=== PATIENT | female | born 1945 | race Caucasian/White ===

== ENCOUNTER 2018-01-02 14:26 | Emergency (ER) | payer MEDICARE, OTHER ==
--- NOTE | 2018-01-02 14:53 | ER Document Report ---
ED Medical Screen (RME) - General Chief Complaint: Abdominal Pain Stated Complaint: ABDOMINAL PAIN Time Seen by Provider: 01/02/18 14:42 Notes: 72 years old female presents today with diffuse abdominal pain for the last few days to weeks. Associated with on and off nausea no vomiting. Denies any diarrhea or constipation. Denies any fever chills or other constitutional symptoms. Denies any dysuria frequency urgency. TRAVEL OUTSIDE OF THE [place] IN LAST 30 DAYS: No - Related Data Allergies/Adverse Reactions: Penicillins Allergy (Severe, Verified 02/07/11 10:07) Sulfa (Sulfonamide Antibiotics) Allergy (Severe, Verified 02/07/11 10:07) Past Medical History - Social History Frequency of alcohol use: None Drug Abuse: None - Past Medical History Cardiac Medical History: Reports: Hx Hypertension Denies: Hx Heart Attack Pulmonary Medical History: Denies: Hx Asthma Neurological Medical History: Denies: Hx Cerebrovascular Accident, Hx Seizures Endocrine Medical History: Reports: Hx Diabetes Mellitus Type 2 Renal/ Medical History: Denies: Hx Peritoneal Dialysis GI Medical History: Denies: Hx Hepatitis, Hx Hiatal Hernia, Hx Ulcer Infectious Medical History: Denies: Hx Hepatitis Past Surgical History: Reports: Hx Cholecystectomy, Hx Hysterectomy. Denies: Hx Mastectomy, Hx Open Heart Surgery, Hx Pacemaker Physical Exam - Vital signs Vitals: Temp Pulse Resp BP Pulse Ox 98.6 F 70 16 137/64 H 93 01/02/18 14:36 01/02/18 14:36 01/02/18 14:36 01/02/18 14:36 01/02/18 14:36 Course - Vital Signs Vital signs: Temp Pulse Resp BP Pulse Ox 98.6 F 70 16 137/64 H 93 01/02/18 14:36 01/02/18 14:36 01/02/18 14:36 01/02/18 14:36 01/02/18 14:36 Doctor's Discharge - Discharge Referrals: KAMAR MEDEIROS DO [Primary Care Provider] - Follow up as needed
[2018-01-02 15:28] LABS: APPEARANCE,URINE SLIGHTLY-CLOUDY; BILIRUBIN,URINE NEGATIVE (NEGATIVE); COLOR,URINE YELLOW; GLUCOSE, URINE NEGATIVE (NEGATIVE); KETONES,URINE NEGATIVE (NEGATIVE); LEUKOCYTE ESTERASE,URINE LARGE (NEGATIVE); NITRITE,URINE NEGATIVE (NEGATIVE); PROTEIN,URINE NEGATIVE (NEGATIVE); URINE SPECIFIC GRAVITY 1.023; UROBILINOGEN,URINE NEGATIVE mg/dL (<2.0)
[2018-01-02 15:31] LABS: ABSOLUTE BASOPHILS # (AUTO) 0.1 10^3/uL (0.0-0.2); ABSOLUTE EOSINOPHILS # (AUTO) 0.3 10^3/uL (0.0-0.6); ABSOLUTE LYMPHOCYTES (AUTO) 3.4 10^3/uL (0.5-4.7); ABSOLUTE MONOCYTES (AUTO) 1.3 10^3/uL (0.1-1.4); BASOPHILS % (AUTO) 0.6 % (0-2); EOSINOPHILS % (AUTO) 2.7 % (0-6); HEMATOCRIT 47.8 % (36.0-47.0); HEMOGLOBIN 16.2 g/dL (12.0-15.5); LYMPHOCYTES % (AUTO) 34.1 % (13-45); MEAN CORPUSCULAR HEMOGLOBIN 31.7 pg (27.0-33.4); MEAN CORPUSCULAR HGB CONC 33.8 g/dL (32.0-36.0); MEAN CORPUSCULAR VOLUME 94 fl (80-97); PLATELET COUNT 329 10^3/uL (150-450); RED BLOOD COUNT 5.11 10^6/uL (3.72-5.28); RED CELL DISTRIBUTION WIDTH 13.9 % (11.5-14.0); SEGMENTED NEUTROPHILS % (AUTO) 49.6 % (42-78); TOTAL CELLS COUNTED % (AUTO) 100 %
--- NOTE | 2018-01-02 15:41 | RADIOLOGY REPORT (SQ) ---
EXAM DESCRIPTION: ACUTE ABDOMEN SERIES COMPLETED DATE/TIME: 01/02/2018 3:31 pm REASON FOR STUDY: Abdominal pain COMPARISON: 12/16/2009 NUMBER OF VIEWS: Three views. TECHNIQUE: Frontal chest, supine abdomen and upright/decubitus abdomen radiographic images acquired. LIMITATIONS: None. FINDINGS: CHEST: Lungs clear of infiltrates. FREE AIR: None. No abnormal gas collections. BOWEL GAS PATTERN: Nonobstructive pattern. No dilated loops or air fluid levels. CALCIFICATIONS: No suspicious calcifications. HARDWARE: There are clips in the right upper quadrant consistent with prior cholecystectomy. SOFT TISSUES: No gross mass or suggestion of organomegaly. BONES: There is lumbar scoliosis with concavity toward the left. OTHER: No other significant finding. IMPRESSION: NO RADIOGRAPHIC EVIDENCE FOR ACUTE ABDOMINAL DISEASE. TECHNICAL DOCUMENTATION: JOB ID: [id number] [employer]- All Rights Reserved Reading location - IP/workstation name: [email or web address]
--- NOTE | 2018-01-02 15:41 | ER Document Report ---
ED General - General Chief Complaint: Abdominal Pain Stated Complaint: ABDOMINAL PAIN Time Seen by Provider: 01/02/18 14:42 TRAVEL OUTSIDE OF THE [place] IN LAST 30 DAYS: No - HPI Notes: Patient is a 72-year-old female with a history of type 2 diabetes, GERD, and hypertension who presents to the ED complaining of epigastric abdominal burning and right upper quadrant pain consistently over the last month that is improved with p.o. intake. Patient states that she does take Zantac twice a day. She does not ring over the last time she had an EGD performed. Patient does report a surgical history of a cholecystectomy as well as a total hysterectomy. Patient states that her pains do not radiate. She is still tolerating p.o. without any difficulties. She is urinating normally having normal bowel movements although she felt constipated this morning. Denies any headache, fever, URI, sore throat, chest pain, palpitations, syncope, cough, shortness of breath, wheeze, dyspnea, nausea/vomiting/diarrhea, urinary retention, dysuria, hematuria, back pain, loss of control of bowel or bladder, numbness/tingling, saddle anesthesia, muscle paralysis/weakness, or rash. - Related Data Allergies/Adverse Reactions: Penicillins Allergy (Severe, Verified 01/02/18 15:29) Sulfa (Sulfonamide Antibiotics) Allergy (Severe, Verified 01/02/18 15:29) Past Medical History - Social History Smoking Status: Current Every Day Smoker Frequency of alcohol use: None Drug Abuse: None Family History: Reviewed & Not Pertinent Patient has suicidal ideation: No Patient has homicidal ideation: No - Past Medical History Cardiac Medical History: Reports: Hx Hypertension Denies: Hx Heart Attack Pulmonary Medical History: Denies: Hx Asthma Neurological Medical History: Denies: Hx Cerebrovascular Accident, Hx Seizures Endocrine Medical History: Reports: Hx Diabetes Mellitus Type 2 Renal/ Medical History: Denies: Hx Peritoneal Dialysis GI Medical History: Denies: Hx Hepatitis, Hx Hiatal Hernia, Hx Ulcer Infectious Medical History: Denies: Hx Hepatitis Past Surgical History: Reports: Hx Cholecystectomy, Hx Hysterectomy. Denies: Hx Mastectomy, Hx Open Heart Surgery, Hx Pacemaker Review of Systems - Review of Systems -: Yes All other systems reviewed and negative Physical Exam - Vital signs Vitals: Temp Pulse Resp BP Pulse Ox 98.6 F 70 16 137/64 H 93 01/02/18 14:36 01/02/18 14:36 01/02/18 14:36 01/02/18 14:36 01/02/18 14:36 - Notes Notes: PHYSICAL EXAMINATION: GENERAL: Well-appearing, well-nourished and in no acute distress. A&Ox4. Answers questions appropriately. HEAD: Atraumatic, normocephalic. EYES: Pupils equal round and reactive to light, extraocular movements intact, sclera anicteric, conjunctiva are normal. ENT: Nares patent and without discharge. oropharynx clear without exudates. No tonsilar hypertrophy or erythema. Moist mucous membranes. NECK: Normal range of motion, supple without lymphadenopathy LUNGS: Breath sounds clear to auscultation bilaterally and equal. No wheezes rales or rhonchi. HEART: Regular rate and rhythm without murmurs, rubs, gallops. ABDOMEN: Soft, nondistended abdomen. No guarding, no rebound. No masses appreciated. Normal bowel sounds present. No CVA tenderness bilaterally. + mild tenderness to the epigastrum and RUQ, correlates with pain described. Musculoskeletal: FROM to passive/active. Strength 5+/5. Extremities: No cyanosis, clubbing, or edema b/l. Peripheral pulses 2+. Capillary refill less than 3 seconds. NEUROLOGICAL: Normal speech, normal gait. PSYCH: Normal mood, normal affect. SKIN: Warm, Dry, normal turgor, no rashes or lesions noted. Course - Re-evaluation Re-evalutation: 01/02/18 17:06 Patient is an afebrile, well-hydrated, 72-year-old female who presents to the ED with epigastric and right upper quadrant pain, suspect possible GERD versus duodenal ulcer with report of improvement in her pain with food intake. Vitals are acceptable without any significant tachycardia, tachypnea, or hypoxia. PE is otherwise unremarkable. Patient's abdomen is now soft and nontender after a GI cocktail. Patient states that she is feeling much better. Patient did have noted mild hypercalcemia on exam, but does drink milk as her primary liquid intake. CBC, CMP, lipase, urinalysis otherwise grossly unremarkable for any acute pathology. Urine culture is pending. Acute abdominal series unremarkable. Patient is nontoxic-appearing and is tolerating p.o. without difficulties. No other labs or imaging warranted at this time based on H&P. Low suspicion/risk for acute appendicitis, bowel obstruction, acute cholecystitis, acute cholangitis, perforated diverticulitis, incarcerated hernia , pancreatitis, perforated ulcer, peritonitis, sepsis, pelvic inflammatory disease, ectopic , tubo-ovarian abscess, ovarian torsion, or other systemic emergent condition at this time. Patient is aware that her condition can change from initial presentation and she needs to monitor symptoms closely and seek medical attention if any acute changes. I will send her home with a prescription for Carafate and omeprazole. Conservative measures otherwise for symptoms. Recheck with your PCM in 2-3 days. Consider consult with a retort forker. Return to the ED with any worsening/concerning symptoms otherwise as reviewed in discharge. Patient is in agreement. - Vital Signs Vital signs: Temp Pulse Resp BP Pulse Ox 98.6 F 70 16 137/64 H 93 01/02/18 14:36 01/02/18 14:36 01/02/18 14:36 01/02/18 14:36 01/02/18 14:36 - Laboratory Result Diagrams: 01/02/18 15:05 01/02/18 15:05 Laboratory results interpreted by me: 01/02/18 01/02/18 01/02/18 15:05 15:05 15:05 Hgb 16.2 H Hct 47.8 H BUN 25 H Glucose 127 H Calcium 11.4 H Ur Leukocyte Esterase LARGE H Discharge - Discharge Clinical Impression: Epigastric abdominal pain Condition: Stable Disposition: HOME, SELF-CARE Instructions: Abdominal Pain ([facility]) Additional Instructions: Maintain adequate fluid and food intake Healthy diet Decrease consumption of calcium intake until directed otherwise by her family doctor tylenol if needed Medicines as reviewed. You may stop your Zantac and try omeprazole once daily at this time. Monitor for any worsening symptoms Make sure you are staying hydrated enough to urinate and have normal BM's Recheck with your PCM in 2-3 days Consider consult with Gastroenterology for ongoing/worsening symptoms Return to the ED with any worsening symptoms and/or development of fever, headache, chest pain, palpitations, syncope, shortness of breath, trouble breathing, abdominal pain, n/v/d, blood in stool/urine, weakness, or other worsening symptoms that are concerning to you. Prescriptions: Omeprazole 20 mg PO DAILY #30 tablet. Sucralfasissy [Carafate] 1 gm PO QID PRN #420 ml PRN Reason: Forms: Elevated Blood Pressure Referrals: DONTE LUCIANO MD [ACTIVE STAFF] - Follow up as needed BETH LEE MD [ACTIVE STAFF] - Follow up as needed
[2018-01-02 15:48] LABS: ALANINE AMINOTRANSFERASE 25 U/L (9-52); ALBUMIN 4.6 g/dL (3.5-5.0); ALKALINE PHOSPHATASE 76 U/L (38-126); ANION GAP 15 (5-19); ASPARTATE AMINO TRANSFERASE 20 U/L (14-36); BILIRUBIN,DIRECT 0.3 mg/dL (0.0-0.4); BILIRUBIN,TOTAL 0.4 mg/dL (0.2-1.3); BLOOD UREA NITROGEN 25 mg/dL (7-20); CALCIUM 11.4 mg/dL (8.4-10.2); CARBON DIOXIDE 30 mmol/L (22-30); CHLORIDE 98 mmol/L (98-107); GLUCOSE 127 mg/dL (75-110); LIPASE 84.7 U/L (23-300); POTASSIUM 4.2 mmol/L (3.6-5.0); SODIUM 143.2 mmol/L (137-145); TOTAL PROTEIN 7.8 g/dL (6.3-8.2)
[2018-01-02] MEDS ORDERED: LIDOCAINE 2% VISCOUS SOLN 20 ML UDCUP PO ONE (16:24)
[2018-01-02] MEDS ORDERED: MAG HYDROX/AL HYDROX/SIMETH SUSP 30 ML UDCUP PO ONE (16:24)
[2018-01-02] MEDS ORDERED: METOCLOPRAMIDE HCL ORAL SOLN 10 MG/10 ML UDCUP PO ONE (16:24)
[2018-01-02 18:13] VITALS: BP 141/74
== END 2018-01-02 17:30 | disposition home or self-care (01) ==
LOC: ER 14:26
DX: R10.13 Epigastric pain (principal); E11.9 Type 2 diabetes mellitus without complications; K21.9 Gastro-esophageal reflux disease without esophagitis; I10 Essential (primary) hypertension; Z90.49 Acquired absence of other specified parts of digestive tract; Z90.710 Acquired absence of both cervix and uterus
CPT/HCPCS: 99284; 36415; 87086; 83690; 85025; 87088; 80053; 81001; 87186; 74022; J3490; A9270

== ENCOUNTER 2018-12-14 18:59 | Emergency (ER) | payer MEDICARE, OTHER ==
--- NOTE | 2018-12-14 19:58 | RADIOLOGY REPORT (SQ) ---
EXAM DESCRIPTION: CHEST SINGLE VIEW COMPLETED DATE/TIME: 12/14/2018 7:41 pm REASON FOR STUDY: chest pain COMPARISON: None. EXAM PARAMETERS: NUMBER OF VIEWS: One view. TECHNIQUE: Single frontal radiographic view of the chest acquired. RADIATION DOSE: NA LIMITATIONS: None. FINDINGS: LUNGS AND PLEURA: No opacities, masses or pneumothorax. No pleural effusion. MEDIASTINUM AND HILAR STRUCTURES: No masses. Contour normal. HEART AND VASCULAR STRUCTURES: Cardiomegaly. BONES: No acute findings. HARDWARE: None in the chest. OTHER: No other significant finding. IMPRESSION: Cardiomegaly without acute abnormality of the lungs in AP projection. TECHNICAL DOCUMENTATION: JOB ID: [id number] [employer]- All Rights Reserved Reading location - IP/workstation name: [email or web address]
[2018-12-14 20:59] LABS: HEMATOCRIT 45.4 % (36.0-47.0); HEMOGLOBIN 15.1 g/dL (12.0-15.5); MEAN CORPUSCULAR HEMOGLOBIN 30.3 pg (27.0-33.4); MEAN CORPUSCULAR HGB CONC 33.3 g/dL (32.0-36.0); MEAN CORPUSCULAR VOLUME 91 fl (80-97); PLATELET COUNT 304 10^3/uL (150-450); RED BLOOD COUNT 4.99 10^6/uL (3.72-5.28); RED CELL DISTRIBUTION WIDTH 14.2 % (11.5-14.0); WHITE BLOOD COUNT 16.2 10^3/uL (4.0-10.5)
[2018-12-14 21:10] LABS: ALBUMIN 4.9 g/dL (3.5-5.0); ALKALINE PHOSPHATASE 84 U/L (38-126); ANION GAP 11 (5-19); ASPARTATE AMINO TRANSFERASE 19 U/L (14-36); BILIRUBIN,DIRECT 0.3 mg/dL (0.0-0.4); BILIRUBIN,TOTAL 0.5 mg/dL (0.2-1.3); BLOOD UREA NITROGEN 28 mg/dL (7-20); CARBON DIOXIDE 32 mmol/L (22-30); CHLORIDE 95 mmol/L (98-107); CREATINE KINASE 35 U/L (30-135); GLUCOSE 159 mg/dL (75-110); POTASSIUM 4.5 mmol/L (3.6-5.0); TOTAL PROTEIN 7.9 g/dL (6.3-8.2)
[2018-12-14 21:11] LABS: APPEARANCE,URINE CLEAR; BILIRUBIN,URINE NEGATIVE (NEGATIVE); COLOR,URINE YELLOW; GLUCOSE, URINE NEGATIVE (NEGATIVE); KETONES,URINE NEGATIVE (NEGATIVE); LEUKOCYTE ESTERASE,URINE TRACE (NEGATIVE); NITRITE,URINE NEGATIVE (NEGATIVE); PROTEIN,URINE 100 mg/dL (NEGATIVE); URINE SPECIFIC GRAVITY 1.023; UROBILINOGEN,URINE NEGATIVE mg/dL (<2.0)
[2018-12-14 21:17] LABS: CALCIUM 12.2 mg/dL (8.4-10.2)
[2018-12-14 21:29] LABS: ABSOLUTE LYMPHOCYTES# (MANUAL) 3.2 10^3/uL (0.5-4.7); BASOPHILS % (MANUAL) 0 % (0-2); EOSINOPHILS % (MANUAL) 0 % (0-6); HYPOCHROMASIA SLIGHT; LYMPHOCYTES % (MANUAL) 17 % (13-45); MONOCYTES % (MANUAL) 6 % (3-13); PLATELET COMMENT ADEQUATE; SEGMENTED NEUTROPHILS % (MAN) 74 % (42-78); TOTAL CELLS COUNTED 100
[2018-12-14] MEDS ORDERED: NORMAL SALINE 1000 ML 1,000 ML IV ONE (21:30)
--- NOTE | 2018-12-14 21:35 | ER Document Report ---
Entered by LISA PEÑALOZA SCRIBE 12/14/181945 Acting as scribe for:THOR MARTE MD ED General - General Chief Complaint: Chest Pain Stated Complaint: CHEST PAIN Time Seen by Provider: 12/14/18 19:21 Information source: Patient Notes: 73 year old female that presents to the emergency department today with complaints of right lateral chest wall pain that wraps around to her back for the last x6 months. Patient reports her pain became worse last night and then this morning it became "horrific", stating she could not get out of bed secondary to the pain. Patient describes the pain as feeling as if there was a "knife stuck in her". Patient reports a history of pleurisy and she is unsure if this pain could be related to that. Patient denies any change in her pain with movement. Patient states she has told her doctor about this pain and he "does not know what it is". Patient states the only thing she has had done to work this pain up so far was a recent chest x-ray that was done at an urgent care a few days ago. Patient was also started on decadron during that urgent care visit which she states has not helped her pain. TRAVEL OUTSIDE OF THE [place] IN LAST 30 DAYS: No - Related Data Allergies/Adverse Reactions: Penicillins Allergy (Severe, Verified 12/14/18 18:59) Sulfa (Sulfonamide Antibiotics) Allergy (Severe, Verified 12/14/18 18:59) Past Medical History - General Information source: Patient - Social History Smoking Status: Current Every Day Smoker Cigarette use (# per day): Yes Chew tobacco use (# tins/day): No Smoking Education Provided: No Frequency of alcohol use: None Drug Abuse: None Lives with: Family Family History: Reviewed & Not Pertinent - Past Medical History Cardiac Medical History: Reports: Hx Hypertension Endocrine Medical History: Reports: Hx Diabetes Mellitus Type 2, Other - Hypercalcemia Past Surgical History: Reports: Hx Cholecystectomy, Hx Hysterectomy Review of Systems - Review of Systems Constitutional: No symptoms reported EENT: No symptoms reported Cardiovascular: No symptoms reported Respiratory: See HPI, Other - right chest wall pain Gastrointestinal: No symptoms reported Genitourinary: No symptoms reported Female Genitourinary: No symptoms reported Musculoskeletal: See HPI, Back pain - right upper chest wall radiating to right upper back Skin: No symptoms reported Hematologic/Lymphatic: No symptoms reported Neurological/Psychological: No symptoms reported Physical Exam - Vital signs Vitals: Pulse Resp BP Pulse Ox 81 22 H 169/88 H 91 L 12/14/18 19:19 12/14/18 19:19 12/14/18 19:19 12/14/18 19:19 - Notes Notes: Physical Exam: General: Alert, appears well. Poor dentition. HEENT: Normocephalic. Atraumatic. PERRL. Extraocular movements intact. Oropharynx clear. Neck: Supple. Non-tender. Respiratory: No respiratory distress. Coarse wheezing bilaterally consistent with smoking history. Right anterior ribs and right anterior lateral rib exquisitely tender with palpation. No left sided tenderness. Cardiovascular: Regular rate and rhythm. Abdominal: Normal Inspection. Non-tender. No distension. Normal Bowel Sounds. Back: Right posterior chest/flank tenderness with palpation. Extremities: Moves all four extremities. Upper extremities: Normal inspection. Normal ROM. Lower extremities: Normal inspection. No edema. Normal ROM. Neurological: Normal cognition. AAOx4. Normal speech. Psychological: Normal affect. Normal Mood. Skin: Warm. Dry. Normal color. Course - Vital Signs Vital signs: Temp Pulse Resp BP Pulse Ox 81 23 H 153/93 H 92 12/14/18 19:19 12/14/18 21:01 12/14/18 21:01 12/14/18 21:01 - Laboratory Result Diagrams: 12/14/18 20:16 12/14/18 20:16 Laboratory results interpreted by me: 12/14/18 12/14/18 12/14/18 20:16 20:16 20:16 WBC 16.2 H RDW 14.2 H Abs Neuts (Manual) 12.0 H Chloride 95 L Carbon Dioxide 32 H BUN 28 H Glucose 159 H Calcium 12.2 H* Urine Protein 100 H Ur Leukocyte Esterase TRACE H - Diagnostic Test Radiology reviewed: Image reviewed, Reports reviewed - CXR--Cardiomegaly without acute abnormalities. - EKG Interpretation by Me EKG shows normal: Sinus rhythm. abnormal: QRS Complexes - Line inferior Q waves, ST-T Waves - Borderline anterolateral T abnormalities Rate: Normal - 75 Rhythm: Arrthymia P Waves: HORTENCIA, LAE - Transfer of Care Care transferred to following provider: Dr. Edwards Notes: 12/14/18 22:[address] chest. Discharge - Discharge Clinical Impression: Chronic right-sided thoracic back pain, Chronic chest pain, Chest wall pain High blood pressure Qualifiers: Hypertension type: essential hypertension Qualified Code(s): I10 - Essential (primary) hypertension Condition: Stable Disposition: HOME, SELF-CARE Scribe Attestation: 12/14/18 22:12 I personally performed the services described in the documentation, reviewed and edited the documentation which was dictated to the scribe in my presence, and it accurately records my words and actions. I personally performed the services described in the documentation, reviewed and edited the documentation which was dictated to the scribe in my presence, and it accurately records my words and actions.
--- NOTE | 2018-12-14 22:48 | RADIOLOGY REPORT (SQ) ---
EXAM DESCRIPTION: CT CHEST WITH IV CONTRAST COMPLETED DATE/TME: 12/14/2018 21:33 CLINICAL HISTORY: 73 years, Female, Chronic right chest wall pain, hypercalcemia COMPARISON: None. TECHNIQUE: 324 Images stored on PACS. All CT scanners at this facility use dose modulation, iterative reconstruction, and/or weight based dosing when appropriate to reduce radiation dose to as low as reasonably achievable (ALARA). Axial CTA images of the chest with coronal and sagittal MIPS [facility]: Dose Right [facility]: CareDose [facility]: Dose Right [facility]: Teradose 4D [facility]: [employer] LIMITATIONS: None. FINDINGS: The mediastinal vasculature enhances normally. There is no intraluminal filling defect to suggest pulmonary embolus. No thoracic aortic aneurysm or dissection. Limited evaluation of the upper abdomen shows fatty infiltrative change to the liver. There is a 6 x 5.3 cm left renal cyst. Osseous structures are grossly intact. No mediastinal or hilar adenopathy. Lungs are clear. No pneumothorax. IMPRESSION: No acute intrathoracic process TECHNICAL DOCUMENTATION: Quality ID # [id number]: Final reports with documentation of one or more dose reduction techniques (e.g., Automated exposure control, adjustment of the mA and/or kV according to patient size, use of iterative reconstruction technique) copyright 2010 [employer]- All Rights Reserved
--- NOTE | 2018-12-14 23:20 | ER Document Report ---
Doctor's Note Notes: 12/14/18 23:20 Patient received in signout by Dr. Adams. CT of the chest pending. CT without any acute process. Patient will be discharged home in stable condition.
[2018-12-14] MEDS ORDERED: KETOROLAC TROMETHAMINE INJ/PF 30 MG/1 ML SDV IV ONE (23:29)
[2018-12-14] MEDS ORDERED: ONDANSETRON HCL INJ/PF 4 MG/2 ML SDV IV ONE (23:29)
[2018-12-14] MEDS ORDERED: DIAZEPAM 5 MG TABLET PO ONE (23:29)
[2018-12-14 23:54] VITALS: BP 157/93
--- NOTE | 2018-12-15 09:30 | EKG REPORT ---
SEVERITY:- ABNORMAL ECG - SINUS ARRHYTHMIA, RATE 53-90 BIATRIAL ABNORMALITIES BORDERLINE INFERIOR Q WAVES BORDERLINE T ABNORMALITIES, ANT-LAT LEADS : Confirmed by: Berry Catalan MD 15-Dec-2018 09:29:55
== END 2018-12-15 00:12 | disposition home or self-care (01) ==
LOC: ER 18:59
DX: R07.9 Chest pain, unspecified (principal); R07.89 Other chest pain; M54.6 Pain in thoracic spine; G89.29 Other chronic pain; E83.52 Hypercalcemia; I10 Essential (primary) hypertension
CPT/HCPCS: 93005; 99285; 96361; 96374; 96375; 36415; 82550; 85025; 80053; 81001; 84484; 71045; 71260; 93010; A9270; J1885; J2405; J7030

== ENCOUNTER 2018-12-25 11:02 | Inpatient (IN) | payer MEDICARE, OTHER ==
[2018-12-25] MEDS ORDERED: METHYLPREDNISOLONE INJ 125 MG/2 ML SDV IV ONE (11:25)
[2018-12-25] MEDS ORDERED: MAGNESIUM SULFATE/D5W 1 GM/100 ML RTUPB IV ONE ×2 (11:25→11:26)
[2018-12-25] MEDS ORDERED: IPRATROPIUM/ALBUTEROL 0.5-2.5 MG/3 ML AMPUL NEB ONE ×2 (11:25→12:10)
--- NOTE | 2018-12-25 11:28 | ER Document Report ---
ED Medical Screen (RME) - General Chief Complaint: Breathing Difficulty Stated Complaint: DIFFICULTY BREATHING Time Seen by Provider: 12/25/18 11:18 TRAVEL OUTSIDE OF THE [place] IN LAST 30 DAYS: No - HPI Notes: 12/25/18 11:22 Patient is a 73-year-old female with a history of COPD, type 2 diabetes, GERD, and hypertension who presents complaining of productive cough that began last night with some mild shortness of breath associated and sore throat. Patient is not usually on oxygen at home. Denies GAY, fever, neck pain, URI, CP, syncope, Abd pain, n/v/d, dysuria, back pain, or rash. I have treated and performed a rapid initial assessment of this patient. A comprehensive ED assessment and evaluation of the patient, analysis of test results and completion of medical decision making process will be conducted by additional ED providers. PHYSICAL EXAMINATION: GENERAL: Well-appearing, well-nourished and in no acute distress. A&Ox4. Answers questions appropriately. LUNGS: Diminished bilaterally. No retractions. Mild wheezing. HEART: Regular rate and rhythm without murmurs, rubs, gallops. Extremities: No cyanosis, clubbing, or edema b/l. NEUROLOGICAL: Normal speech, normal gait. PSYCH: Normal mood, normal affect. - Related Data Allergies/Adverse Reactions: Penicillins Allergy (Severe, Verified 12/25/18 11:04) Sulfa (Sulfonamide Antibiotics) Allergy (Severe, Verified 12/25/18 11:04) Past Medical History - Past Medical History Cardiac Medical History: Reports: Hx Hypertension Denies: Hx Heart Attack Pulmonary Medical History: Denies: Hx Asthma Neurological Medical History: Denies: Hx Cerebrovascular Accident, Hx Seizures Endocrine Medical History: Reports: Hx Diabetes Mellitus Type 2 Renal/ Medical History: Denies: Hx Peritoneal Dialysis GI Medical History: Denies: Hx Hepatitis, Hx Hiatal Hernia, Hx Ulcer Infectious Medical History: Denies: Hx Hepatitis Past Surgical History: Reports: Hx Cholecystectomy, Hx Hysterectomy. Denies: Hx Mastectomy, Hx Open Heart Surgery, Hx Pacemaker Physical Exam - Vital signs Vitals: Temp Pulse Resp BP Pulse Ox 98.1 F 105 H 24 H 157/73 H 91 L 12/25/18 11:08 12/25/18 11:08 12/25/18 11:08 12/25/18 11:08 12/25/18 11:08 Course - Vital Signs Vital signs: Temp Pulse Resp BP Pulse Ox 98.1 F 105 H 24 H 157/73 H 91 L 12/25/18 11:08 12/25/18 11:08 12/25/18 11:08 12/25/18 11:08 12/25/18 11:08
--- NOTE | 2018-12-25 12:10 | RADIOLOGY REPORT (SQ) ---
EXAM DESCRIPTION: CHEST SINGLE VIEW COMPLETED DATE/TIME: 12/25/2018 11:56 am REASON FOR STUDY: cough/wheeze COMPARISON: 12/14/2018 EXAM PARAMETERS: NUMBER OF VIEWS: One view. TECHNIQUE: Single frontal radiographic view of the chest acquired. RADIATION DOSE: NA LIMITATIONS: None. FINDINGS: LUNGS AND PLEURA: No opacities, masses or pneumothorax. No pleural effusion. MEDIASTINUM AND HILAR STRUCTURES: No masses. Contour normal. HEART AND VASCULAR STRUCTURES: Normal heart size. Aortic atherosclerosis. BONES: No acute findings. HARDWARE: None in the chest. OTHER: No other significant finding. IMPRESSION: No evidence of focal airspace disease or other acute cardiopulmonary process. TECHNICAL DOCUMENTATION: JOB ID: [id number] [employer]- All Rights Reserved Reading location - IP/workstation name: [email or web address]
[2018-12-25 12:11] LABS: VENOUS BLOOD BASE EXCESS 3.2 mmol/L; VENOUS BLOOD HCO3 29.5 mmol/L (20-32); VENOUS BLOOD PCO2 51.7 mmHg (35-63); VENOUS BLOOD PH 7.37 (7.30-7.42)
[2018-12-25 12:12] LABS: ABSOLUTE BASOPHILS # (AUTO) 0.1 10^3/uL (0.0-0.2); ABSOLUTE EOSINOPHILS # (AUTO) 0.2 10^3/uL (0.0-0.6); ABSOLUTE LYMPHOCYTES (AUTO) 2.5 10^3/uL (0.5-4.7); ABSOLUTE MONOCYTES (AUTO) 3.5 10^3/uL (0.1-1.4); BASOPHILS % (AUTO) 0.6 % (0-2); EOSINOPHILS % (AUTO) 1.2 % (0-6); HEMATOCRIT 41.8 % (36.0-47.0); HEMOGLOBIN 14.2 g/dL (12.0-15.5); LYMPHOCYTES % (AUTO) 13.5 % (13-45); MEAN CORPUSCULAR HEMOGLOBIN 31.1 pg (27.0-33.4); MEAN CORPUSCULAR HGB CONC 33.9 g/dL (32.0-36.0); MEAN CORPUSCULAR VOLUME 92 fl (80-97); MONOCYTES % (AUTO) 19.1 % (3-13); PLATELET COUNT 257 10^3/uL (150-450); RED BLOOD COUNT 4.54 10^6/uL (3.72-5.28); RED CELL DISTRIBUTION WIDTH 14.8 % (11.5-14.0); SEGMENTED NEUTROPHILS % (AUTO) 65.6 % (42-78); TOTAL CELLS COUNTED % (AUTO) 100 %; WHITE BLOOD COUNT 18.2 10^3/uL (4.0-10.5)
[2018-12-25] MEDS ORDERED: ONDANSETRON HCL INJ/PF 4 MG/2 ML SDV ONE (12:22)
[2018-12-25 12:30] LABS: ALBUMIN 4.6 g/dL (3.5-5.0); ALKALINE PHOSPHATASE 87 U/L (38-126); ANION GAP 11 (5-19); ASPARTATE AMINO TRANSFERASE 16 U/L (14-36); BILIRUBIN,DIRECT 0.2 mg/dL (0.0-0.4); BILIRUBIN,TOTAL 0.6 mg/dL (0.2-1.3); BLOOD UREA NITROGEN 18 mg/dL (7-20); CALCIUM 11.1 mg/dL (8.4-10.2); CARBON DIOXIDE 28 mmol/L (22-30); CHLORIDE 99 mmol/L (98-107); GLUCOSE 206 mg/dL (75-110); POTASSIUM 4.3 mmol/L (3.6-5.0); TOTAL PROTEIN 7.5 g/dL (6.3-8.2)
[2018-12-25] MEDS ORDERED: ONDANSETRON HCL INJ/PF 4 MG/2 ML SDV IV ONE (12:30)
[2018-12-25 12:42] LABS: NT PRO BNP 41 pg/mL (5-900)
[2018-12-25 12:43] LABS: TROPONIN I < 0.012 ng/mL
[2018-12-25 14:06] LABS: APPEARANCE,URINE CLEAR; BILIRUBIN,URINE NEGATIVE (NEGATIVE); COLOR,URINE YELLOW; GLUCOSE, URINE >=500 mg/dL (NEGATIVE); KETONES,URINE TRACE mg/dL (NEGATIVE); LEUKOCYTE ESTERASE,URINE MODERATE (NEGATIVE); NITRITE,URINE NEGATIVE (NEGATIVE); PROTEIN,URINE 100 mg/dL (NEGATIVE); URINE SPECIFIC GRAVITY 1.025; UROBILINOGEN,URINE NEGATIVE mg/dL (<2.0)
--- NOTE | 2018-12-25 14:40 | ER Document Report ---
ED Respiratory Problem - General Chief Complaint: Breathing Difficulty Stated Complaint: DIFFICULTY BREATHING Time Seen by Provider: 12/25/18 11:18 Notes: Patient is complaining of difficulty breathing and shortness of breath. She says that she is got a history of COPD but stopped smoking about 2 months ago. She has a chronic pain in the right lower rib region around to the back that she has had "for months". She is been seen before for this, most recently about 5 days ago here in this emergency department. She says that no one can find out the cause of the pain she is having. Yesterday, she started noticing her throat itching and then she had a sore throat and then it hurt to swallow this morning. She had some difficulty breathing and shortness of breath during the night. She says she has had an episode of anaphylaxis once and this feels like the same thing starting. She is been nauseated but not vomiting. Developed a cough and congestion yesterday. Says this morning, she coughed up some dark green phlegm. Has had some chills. Thinks she may have had some fever last night, but not sure. Patient has a history of COPD but not on any oxygen at home and not on any nebulizers. She smoked up until 2 months ago. TRAVEL OUTSIDE OF THE [place] IN LAST 30 DAYS: No - Related Data Allergies/Adverse Reactions: Penicillins Allergy (Severe, Verified 12/25/18 11:04) Sulfa (Sulfonamide Antibiotics) Allergy (Severe, Verified 12/25/18 11:04) Past Medical History - Social History Smoking Status: Former Smoker - Stopped a couple of months ago. Frequency of alcohol use: None Drug Abuse: None Family History: Reviewed & Not Pertinent Patient has suicidal ideation: No Patient has homicidal ideation: No - Past Medical History Cardiac Medical History: Reports: Hx Hypertension Pulmonary Medical History: Reports: Hx COPD Denies: Hx Asthma Neurological Medical History: Denies: Hx Cerebrovascular Accident, Hx Seizures Endocrine Medical History: Reports: Hx Diabetes Mellitus Type 2 Past Surgical History: Reports: Hx Cholecystectomy, Hx Hysterectomy Review of Systems - Review of Systems Notes: REVIEW OF SYSTEMS: CONSTITUTIONAL : Denies fever. EENT: Denies eye, ear, nose or mouth pain or other symptoms. CARDIOVASCULAR: See HPI. RESPIRATORY: See HPI. GASTROINTESTINAL: Denies abdominal pain or nausea, vomiting, or diarrhea. GENITOURINARY: Denies difficulty or painful urinating, urinary frequency, blood in urine. MUSCULOSKELETAL: Denies back or neck pain. Denies joint pain or swelling. No swelling of either lower leg. SKIN: Denies rash or skin lesions. NEUROLOGICAL: Denies LOC or altered mental status. Denies headache. Denies sensory loss or motor deficits. ALL OTHER SYSTEMS REVIEWED AND NEGATIVE. Physical Exam - Vital signs Vitals: Temp Pulse Resp BP Pulse Ox 98.1 F 105 H 24 H 157/73 H 91 L 12/25/18 11:08 12/25/18 11:08 12/25/18 11:08 12/25/18 11:08 12/25/18 11:08 Interpretation: Hypoxic Notes: PHYSICAL EXAMINATION: GENERAL: Upon arrival, patient appears to be anxious and short of breath. Vital signs are all essentially normal except for the patient's O2 sat which on 2 L is hovering in the 90-91 area although will dip down into the upper 80s occasionally. HEAD: Atraumatic, normocephalic. EYES: Pupils equal round and reactive to light, extraocular movements intact. ENT: Erythema in the posterior oropharynx but no exudates. No edema of posterior oropharynx. Airway intact. Voice normal. Can swallow without apparent difficulty. NECK: Normal range of motion, supple. LUNGS: Scattered wheezes bilaterally. Good airway exchange. HEART: Regular rate and rhythm without murmurs. ABDOMEN: Soft, nontender. No guarding or rebound. No masses. BACK: No tenderness throughout entire back. EXTREMITIES: Normal range of motion without pain. Negative Homans bilaterally. NEUROLOGICAL: Normal speech, normal gait. Normal sensory, motor, and reflex exams. Awake, alert, and oriented x3. Cranial nerves normal. PSYCH: Normal mood, normal affect. SKIN: Warm, dry, no rashes. Course - Re-evaluation Re-evalutation: 12/25/18 15:07 She remained relatively stable throughout her stay in the department. Her oxygen saturation on 2 L remained rate about 90 to 91%. Good airflow through the lungs. Urinalysis looks like a UTI. I decided to put the patient on Rocephin 1 g IV. Spoke with the hospitalist who will be admitting the patient. - Vital Signs Vital signs: Temp Pulse Resp BP Pulse Ox 98.1 F 105 H 27 H 136/81 H 92 12/25/18 11:08 12/25/18 11:08 12/25/18 15:01 12/25/18 15:01 12/25/18 15:01 - Laboratory Result Diagrams: 12/25/18 11:45 12/25/18 11:45 Laboratory results interpreted by me: 12/25/18 12/25/18 12/25/18 11:45 11:45 11:49 WBC 18.2 H RDW 14.8 H Weber % (Auto) 19.1 H Absolute Neuts (auto) 12.0 H Absolute Monos (auto) 3.5 H Glucose 206 H POC Glucose 214 H Calcium 11.1 H Urine Protein Urine Glucose (UA) Urine Ketones Urine Blood Ur Leukocyte Esterase 12/25/18 13:30 WBC RDW Weber % (Auto) Absolute Neuts (auto) Absolute Monos (auto) Glucose POC Glucose Calcium Urine Protein 100 H Urine Glucose (UA) >=500 H Urine Ketones TRACE H Urine Blood SMALL H Ur Leukocyte Esterase MODERATE H - Diagnostic Test Radiology results interpreted by me: 12/25/18 15:06 Chest x-ray is normal. Critical Care Note - Critical Care Note Total time excluding time spent on procedures (mins): 35 Discharge - Discharge Clinical Impression: COPD with exacerbation, UTI (urinary tract infection), Hypoxia Condition: Stable Disposition: ADMITTED INPATIENT Admitting Provider: Leela (Hospitalist) Unit Admitted: Telemetry
[2018-12-25] MEDS ORDERED: CEFTRIAXONE 1 GM/D5W RTU 1 GM/50 ML RTUPB IV ONE ×2 (14:59→15:10)
--- NOTE | 2018-12-25 17:02 | PDOC H&P ---
History of Present Illness Admission Date/PCP: 12/25/2018 PCP: Tushar Murillo MD Patient complains of: Difficulty Swallowing, throat burning, productive cough History of Present Illness: SEBASTIAN LACY is a 73 year old female with a history of diabetes, sciatica, hypertension, sarcoidosis and COPD. Starting yesterday, the patient states that she was not feeling well. She has been having the pain from the right scapula through to under her right breast for many weeks. In fact she visited the emergency department for this. She states that it has been worked up for shingles and this was negative. She had several studies in the emergency department. No answer was obvious. Yesterday she began having a sore throat. By the evening it was worse. She woke up today and coughed up a thick glob of greenish phlegm and her throat hurt. She says that it feels like she is swallowing glass. She did not notice any blood. She did say that after initial treatment the burning is feeling better. She does have an elevated white blood cell count, tachycardia and tachypnea. She had hypoxemia requiring oxygen and still exhibited some increased work of breathing. UA was suggestive of urinary tract infection as well. The patient was referred to the hospital service for admission. Past Medical History Cardiac Medical History: Reports: Hypertension Denies: Myocardial Infarction Pulmonary Medical History: Reports: Chronic Obstructive Pulmonary Disease (COPD), Other - Sarcoid Denies: Asthma EENT Medical History: Denies: Ears, Nose, Throat Neurological Medical History: Denies: Ischemic CVA, Seizures Endocrine Medical History: Reports: Diabetes Mellitus Type 2 Renal/ Medical History: Denies: Chronic Kidney Disease Malignancy Medical History: Reports: None GI Medical History: Reports: Gastroesophageal Reflux Disease Denies: Hepatitis, Hiatal Hernia Musculoskeltal Medical History: Reports: Other - Sciatica Skin Medical History: Reports: None Psychiatric Medical History: Denies: Alcohol Dependency, Depression, Substance Abuse Traumatic Medical History: Reports: None Hematology: Denies: Anemia, Sickle Cell Disease Past Surgical History Past Surgical History: Reports: Cholecystectomy, Hysterectomy, Orthopedic Surgery - Discectomy, Other - Mediastinal anoscopy Denies: Amputation, Mastectomy, Pacemaker Social History Information Source: Patient Lives with: Spouse/Significant other Smoking Status: Former Smoker - Stopped a couple of months ago. Cigarettes Packs Per Day: 1 Last Time Smoked: October 2018 Frequency of Alcohol Use: None Hx Recreational Drug Use: No Hx Prescription Drug Abuse: No - Advance Directive Resuscitation Status: Full Code Surrogate healthcare decision maker:: Patient does not have a healthcare proxy. She did comment that her has one. Her would be the designated decision maker. Please also see ACP note. Family History Family History: CVA, Malignancy Parental Family History Reviewed: Yes Children Family History Reviewed: Yes Sibling(s) Family History Reviewed.: Yes Medication/Allergy Home Medications: Hydrochlorothiazide [Hydrodiuril 25 mg Tablet] 25 mg PO QAM 12/01/11 Verapamil HCl [Calan Sr 240 Mg Tablet.Sa] 240 mg PO DAILY 12/01/11 Albuterol Sulfate [Proair Hfa Inhalation Aerosol 8.5 gm Mdi] 1 puff IH Q4 PRN 12/25/18 Aspirin/Acetaminophen/Caffeine [Excedrin Extra Strength Caplet] 1 each PO PRN PRN 12/25/18 Nateglinide [Starlix] 60 mg PO TID 12/25/18 Pioglitazone HCl [Actos 15 mg Tablet] 15 mg PO DAILY 12/25/18 Ranitidine HCl 150 mg PO BID 12/25/18 Sitagliptin Phos/Metformin HCl [Janumet Xr 100-1,000 mg Tablet] 1 tab PO BID 12/25/18 Allergies/Adverse Reactions: Penicillins Allergy (Severe, Verified 12/25/18 11:04) Sulfa (Sulfonamide Antibiotics) Allergy (Severe, Verified 12/25/18 11:04) Review of Systems Constitutional: PRESENT: anorexia - Appetite has been decreased. ABSENT: chills, fever(s), headache(s), night sweats Eyes: PRESENT: visual disturbances - Patient reports blurry vision times several weeks. Ears: ABSENT: hearing changes Nose, Mouth, and Throat: PRESENT: sore throat - Throat feels like it is on fire. ABSENT: mouth pain Cardiovascular: PRESENT: other - Pain from right scapula through the right side ending under the breast. Currently asymptomatic but this is been an issue for many weeks.. ABSENT: chest pain Respiratory: PRESENT: cough, sputum. ABSENT: hemoptysis Gastrointestinal: PRESENT: heartburn, nausea, vomiting. ABSENT: abdominal pain, coffee ground emesis, diarrhea, hematemesis Genitourinary: ABSENT: difficulty urinating, dysuria, hematuria Musculoskeletal: PRESENT: back pain - Chronic, other - Sciatica Integumentary: PRESENT: other - Dry skin. ABSENT: diaphoresis, pruritus, rash Neurological: ABSENT: abnormal movements, abnormal speech, confusion, frequent falls, memory loss, numbness, vertigo Endocrine: PRESENT: other - Elevated glucose. ABSENT: cold intolerance, flu shing, heat intolerance Hematologic/Lymphatic: ABSENT: easy bleeding, easy bruising Allergic/Immunologic: ABSENT: seasonal rhinorrhea Physical Exam Vital Signs: Temp Pulse Resp BP Pulse Ox 98.1 F 105 H 27 H 136/81 H 92 12/25/18 11:08 12/25/18 11:08 12/25/18 15:01 12/25/18 15:01 12/25/18 15:01 Intake & Output 12/24/18 12/25/18 12/26/18 06:59 06:59 06:59 Intake Total 250 Balance 250 Weight 63.4 kg General appearance: PRESENT: cooperative, mild distress, well-developed Head exam: PRESENT: atraumatic, normocephalic Eye exam: PRESENT: conjunctiva pale, EOMI, PERRLA. ABSENT: scleral icterus Ear exam: PRESENT: normal external ear exam. ABSENT: bleeding, drainage Mouth exam: PRESENT: dry mucosa, neck supple, tongue midline Teeth exam: PRESENT: poor dentation. ABSENT: dental tenderness Neck exam: PRESENT: full ROM. ABSENT: carotid bruit, JVD, lymphadenopathy, tenderness Respiratory exam: PRESENT: clear to auscultation glynn, symmetrical, tachypnea. ABSENT: accessory muscle use, rales, rhonchi, wheezes Cardiovascular exam: PRESENT: +S1, +S2, tachycardia. ABSENT: diastolic murmur, systolic murmur Pulses: PRESENT: normal radial pulses, normal dorsalis pedis pul Vascular exam: PRESENT: normal capillary refill. ABSENT: pallor GI/Abdominal exam: PRESENT: normal bowel sounds, soft. ABSENT: distended, guarding, tenderness Rectal exam: PRESENT: deferred Extremities exam: ABSENT: joint swelling, pedal edema, tenderness Musculoskeletal exam: PRESENT: ambulatory, normal inspection. ABSENT: deformity Neurological exam: PRESENT: alert, awake, oriented to person, oriented to place, oriented to time, oriented to situation, CN II-XII grossly intact Psychiatric exam: PRESENT: appropriate affect, normal mood. ABSENT: agitated, anxious Focused psych exam: ABSENT: delusional, restlessness Skin exam: PRESENT: dry, warm, other - Very dry skin especially soles of her feet.. ABSENT: rash Results Laboratory Results: 12/25/18 11:45 12/25/18 11:45 12/25/18 12/25/18 12/25/18 11:45 11:45 11:45 WBC 18.2 H RBC 4.54 Hgb 14.2 Hct 41.8 MCV 92 MCH 31.1 MCHC 33.9 RDW 14.8 H Plt Count 257 Seg Neutrophils % 65.6 VBG pH 7.37 VBG pCO2 51.7 VBG HCO3 29.5 VBG Base Excess 3.2 Sodium 138.1 Potassium 4.3 Chloride 99 Carbon Dioxide 28 Anion Gap 11 BUN 18 Creatinine 0.55 Est GFR ( Amer) > 60 Glucose 206 H Lactic Acid Calcium 11.1 H Total Bilirubin 0.6 AST 16 Alkaline Phosphatase 87 Total Protein 7.5 Albumin 4.6 Urine Color Urine Appearance Urine pH Ur Specific [place] Urine Protein Urine Glucose (UA) Urine Ketones Urine Blood Urine Nitrite Ur Leukocyte Esterase Urine WBC (Auto) Urine RBC (Auto) 12/25/18 12/25/18 11:45 13:30 WBC RBC Hgb Hct MCV MCH MCHC RDW Plt Count Seg Neutrophils % VBG pH VBG pCO2 VBG HCO3 VBG Base Excess Sodium Potassium Chloride Carbon Dioxide Anion Gap BUN Creatinine Est GFR ( Amer) Glucose Lactic Acid 1.6 Calcium Total Bilirubin AST Alkaline Phosphatase Total Protein Albumin Urine Color YELLOW Urine Appearance CLEAR Urine pH 5.0 Ur Specific [place] 1.025 Urine Protein 100 H Urine Glucose (UA) >=500 H Urine Ketones TRACE H Urine Blood SMALL H Urine Nitrite NEGATIVE Ur Leukocyte Esterase MODERATE H Urine WBC (Auto) 10 Urine RBC (Auto) 2 12/25/18 11:45 Troponin I < 0.012 NT-Pro-B Natriuret Pep 41 Impressions: Chest X-Ray 12/25/18 11:23 IMPRESSION: No evidence of focal airspace disease or other acute cardiopulmon brooke process. Assessment and Plan - Diagnosis (1) COPD with exacerbation Is this a current diagnosis for this admission?: Yes Plan: 12/25/2018-continue oxygen supplementation. [place] saturation goal would be 90 to 94%. Try to taper oxygen as tolerated. She does use Pro Air on an as-needed basis. I will order duo nebs every 4 hours if needed. (2) UTI (urinary tract infection) Qualifiers: Urinary tract infection type: acute cystitis Hematuria presence: without hematuria Qualified Code(s): N30.00 - Acute cystitis without hematuria Is this a current diagnosis for this admission?: Yes Plan: 12/25/2018-the patient's urine had significant amount of glucose. Leukocyte esterase was positive and 10 white blood cells per high-power field were noted. Urine culture has been ordered. Antibiotic therapy will be started to cover urinary and respiratory etiologies. Await final culture results. I did explain to the patient that this can cause an increase in her white blood cells as well as an increase in her sugars. (3) Hypoxia Is this a current diagnosis for this admission?: Yes Plan: 12/25/2018-the patient exhibited increased work of breathing with tachypnea. She also exhibited hypoxemia and required supplemental oxygen to achieve an oxygen saturation greater than 90%. The patient's nurse stated that on room air she would drop as low as 84%. Continue to supplement with oxygen and wean as tolerated. The patient does not wear oxygen at home. (4) Acute bronchitis Qualifiers: Bronchitis organism: unspecified organism Qualified Code(s): J20.9 - Acute bronchitis, unspecified Is this a current diagnosis for this admission?: Yes Plan: 12/25/2018-the combination of painful swallowing and coughing up a thick glob of green phlegm certainly fits with bronchitis. The chest x-ray did not suggest pneumonia. In addition the lungs were clear to auscultation. Antibiotic therapy has been initiated. Its goal will be to cover respiratory and urinary tract. In addition I have ordered Cepacol lozenges and Chloraseptic spray for symptom control. (5) Diabetes mellitus type 2 in nonobese Is this a current diagnosis for this admission?: Yes Plan: 12/25/2018-the patient is on Janumet XR, Actos and Starlix for her diabetes. Some of these are nonformulary. I will provide the oral medications that are on formulary. The patient may take her own if available. I will order Accu-Cheks before meals and at bedtime as well as sliding scale coverage. (6) Hypertension Qualifiers: Hypertension type: essential hypertension Qualified Code(s): I10 - Essential (primary) hypertension Is this a current diagnosis for this admission?: Yes Plan: The patient is on verapamil 240 mg every a.m. I will reinstitute this with parameters to hold for bradycardia or hypotension. In addition she appears dry. I will continue with gentle IV fluids. (7) Odynophagia Is this a current diagnosis for this admission?: Yes Plan: 12/25/2018-the patient has a history of reflux. We will continue an H2 shaquille. The odynophagia does fit with a bad bronchitis. It is slightly improved. This certainly could be from the Solu-Medrol decreasing inflammation. It is unlikely the antibiotics would take effect this quickly. We will continue to monitor her pain level. As noted above we will try Cepacol lozenges or Chloraseptic spray. - Time Time Spent with patient: 35 or more minutes Medications reviewed and adjusted accordingly: Yes Anticipated discharge: Home - Inpatient Certification Based on my medical assessment, after consideration of the patient's comorbidi ties, presenting symptoms, or acuity I expect that the services needed warrant INPATIENT care.: Yes I certify that my determination is in accordance with my understanding of Kinsey granados's requirements for reasonable and necessary INPATIENT services [42 CFR 412.3e].: Yes Medical Necessity: Need For IV Fluids, Need for IV Antibiotics Post Hospital Care: D/C Director Of Plant Operations Documentation
--- NOTE | 2018-12-25 17:06 | ADVANCED CARE ---
- Diagnosis (1) COPD with exacerbation Diagnosis Current: Yes (2) UTI (urinary tract infection) Diagnosis Current: Yes (3) Hypoxia Diagnosis Current: Yes (4) Acute bronchitis Diagnosis Current: Yes (5) Diabetes mellitus type 2 in nonobese Diagnosis Current: Yes (6) Hypertension Diagnosis Current: Yes (7) Odynophagia Diagnosis Current: Yes Attendance: The discussion was held at the bedside with the patient. No other family members were present. Resuscitation Status: Full Code Discussion: We reviewed the fact that there is a blank healthcare proxy form in her admission packet. She had not gotten her admission packet yet but I did ask her to review the form. I pointed out the various options including naming a primary and secondary decision maker. She understands that by law her is the primary decision maker and she is okay with that. She in fact stated that her has a living well and she does not. She expressed desire to complete a living will but has been feeling poorly. I told her this is the perfect opportunity. We also reviewed the different degrees of aggressiveness with regard to her treatment plan. Examples would be tracheostomy, feeding tube and long-term mcfp placement. I will continue to encourage the patient to complete a document during this hospitalization. Care Planning Goals: Complete a healthcare proxy Document(s) Completed: None as yet Time Spent: 18 minutes
[2018-12-25] MEDS ORDERED: NORMAL SALINE 1000 ML 1,000 ML IV PRN (17:08)
[2018-12-25] MEDS ORDERED: ACETAMINOPHEN 325 MG TABLET PO PRN (17:08)
[2018-12-25] MEDS ORDERED: ONDANSETRON HCL INJ/PF 4 MG/2 ML SDV IV PRN (17:08)
[2018-12-25] MEDS ORDERED: LEVALBUTEROL HCL NEB 0.63 MG/3 ML AMPUL NEB PRN (17:08)
[2018-12-25] MEDS ORDERED: GLUCAGON,HUMAN RECOMB 1 MG INJ IM PRN (17:15)
[2018-12-25] MEDS ORDERED: DEXTROSE 50%-WATER 25 GM/50 ML DISP.SYRIN IV PRN ×2 (17:15)
[2018-12-25] MEDS ORDERED: DEXTROSE 40% GEL 15 GM TUBE PO PRN ×2 (17:15)
--- NOTE | 2018-12-25 17:38 | EKG REPORT ---
SEVERITY:- NORMAL ECG - SINUS RHYTHM : Confirmed by: Fidelia Cotto MD 25-Dec-2018 17:37:50
[2018-12-25] MEDS ORDERED: PHENOL/SODIUM PHENOLATE 100 SPRAY/177 ML BOTTLE PO PRN (17:39)
[2018-12-25] MEDS ORDERED: BENZOCAINE/MENTHOL SORE THROAT LOZENGE BUCCAL PRN (17:39)
[2018-12-25] MEDS ORDERED: (PENDING PHARMACY ID) (Sitagliptin Phos/Metformin Hcl [Janumet Xr 100-1,000 Mg Tablet] 1 T PO SCH (18:00)
[2018-12-25] MEDS: INSULIN REG, HUMAN 100 UNIT/ML 3 ML VIAL (PYX) SUBCUT SCH (22:00)
[2018-12-25] MEDS: FAMOTIDINE 20 MG TABLET PO SCH (22:00)
[2018-12-25] MEDS ORDERED: FAMOTIDINE 20 MG TABLET PO SCH (22:00)
[2018-12-26 05:35] LABS: ABSOLUTE LYMPHOCYTES (AUTO) 1.4 10^3/uL (0.5-4.7); ABSOLUTE MONOCYTES (AUTO) 2.1 10^3/uL (0.1-1.4); BASOPHILS % (AUTO) 0.3 % (0-2); HEMATOCRIT 36.9 % (36.0-47.0); HEMOGLOBIN 12.3 g/dL (12.0-15.5); MEAN CORPUSCULAR HEMOGLOBIN 30.5 pg (27.0-33.4); MEAN CORPUSCULAR HGB CONC 33.3 g/dL (32.0-36.0); MEAN CORPUSCULAR VOLUME 92 fl (80-97); MONOCYTES % (AUTO) 13.7 % (3-13); PLATELET COUNT 221 10^3/uL (150-450); RED BLOOD COUNT 4.02 10^6/uL (3.72-5.28); RED CELL DISTRIBUTION WIDTH 14.3 % (11.5-14.0); TOTAL CELLS COUNTED % (AUTO) 100 %; WHITE BLOOD COUNT 15.6 10^3/uL (4.0-10.5)
[2018-12-26 05:52] LABS: ANION GAP 11 (5-19); BLOOD UREA NITROGEN 22 mg/dL (7-20); CALCIUM 9.9 mg/dL (8.4-10.2); CARBON DIOXIDE 25 mmol/L (22-30); CHLORIDE 102 mmol/L (98-107); GLUCOSE 204 mg/dL (75-110); POTASSIUM 4.9 mmol/L (3.6-5.0)
--- NOTE | 2018-12-26 08:51 | PDOC PROGRESS REPORT ---
Subjective Progress Note for:: 12/26/18 Subjective:: Right-sided rib pain Reason For Visit: CYSTITIS,EXACERBATION OF COPD WITH BRONCHITIS Physical Exam Vital Signs: Temp Pulse Resp BP Pulse Ox 98.2 F 83 16 117/69 96 12/26/18 05:12 12/26/18 08:41 12/26/18 08:41 12/26/18 05:12 12/26/18 08:41 Intake & Output 12/25/18 12/26/18 12/27/18 06:59 06:59 06:59 Intake Total 970 Balance 970 Weight 63.8 kg General appearance: PRESENT: no acute distress, well-developed, well-nourished Neck exam: ABSENT: carotid bruit, JVD, lymphadenopathy, thyromegaly Respiratory exam: PRESENT: clear to auscultation glynn, decreased breath sounds, symmetrical. ABSENT: rales, rhonchi, wheezes Cardiovascular exam: PRESENT: RRR. ABSENT: diastolic murmur, rubs, systolic murmur Pulses: PRESENT: +1 pedal pulses bilateral Vascular exam: PRESENT: normal capillary refill GI/Abdominal exam: PRESENT: normal bowel sounds, soft. ABSENT: distended, guarding, mass, organolmegaly, rebound, tenderness Extremities exam: PRESENT: full ROM. ABSENT: calf tenderness, clubbing, pedal edema Neurological exam: PRESENT: alert, awake, oriented to person, oriented to place, oriented to time, oriented to situation, CN II-XII grossly intact. ABSENT: motor sensory deficit Psychiatric exam: PRESENT: appropriate affect, normal mood. ABSENT: homicidal ideation, suicidal ideation Skin exam: PRESENT: dry, intact, warm. ABSENT: cyanosis, rash Results Laboratory Results: 12/26/18 04:44 12/26/18 04:44 12/25/18 12/25/18 12/25/18 11:45 11:45 11:45 WBC 18.2 H RBC 4.54 Hgb 14.2 Hct 41.8 MCV 92 MCH 31.1 MCHC 33.9 RDW 14.8 H Plt Count 257 Seg Neutrophils % 65.6 VBG pH 7.37 VBG pCO2 51.7 VBG HCO3 29.5 VBG Base Excess 3.2 Sodium 138.1 Potassium 4.3 Chloride 99 Carbon Dioxide 28 Anion Gap 11 BUN 18 Creatinine 0.55 Est GFR ( Amer) > 60 Glucose 206 H Lactic Acid Calcium 11.1 H Magnesium Total Bilirubin 0.6 AST 16 Alkaline Phosphatase 87 Total Protein 7.5 Albumin 4.6 Urine Color Urine Appearance Urine pH Ur Specific [place] Urine Protein Urine Glucose (UA) Urine Ketones Urine Blood Urine Nitrite Ur Leukocyte Esterase Urine WBC (Auto) Urine RBC (Auto) 12/25/18 12/25/18 12/26/18 11:45 13:30 04:44 WBC 15.6 H RBC 4.02 Hgb 12.3 Hct 36.9 MCV 92 MCH 30.5 MCHC 33.3 RDW 14.3 H Plt Count 221 Seg Neutrophils % 77.0 VBG pH VBG pCO2 VBG HCO3 VBG Base Excess Sodium Potassium Chloride Carbon Dioxide Anion Gap BUN Creatinine Est GFR ( Amer) Glucose Lactic Acid 1.6 Calcium Magnesium Total Bilirubin AST Alkaline Phosphatase Total Protein Albumin Urine Color YELLOW Urine Appearance CLEAR Urine pH 5.0 Ur Specific [place] 1.025 Urine Protein 100 H Urine Glucose (UA) >=500 H Urine Ketones TRACE H Urine Blood SMALL H Urine Nitrite NEGATIVE Ur Leukocyte Esterase MODERATE H Urine WBC (Auto) 10 Urine RBC (Auto) 2 12/26/18 04:44 WBC RBC Hgb Hct MCV MCH MCHC RDW Plt Count Seg Neutrophils % VBG pH VBG pCO2 VBG HCO3 VBG Base Excess Sodium 138.2 Potassium 4.9 Chloride 102 Carbon Dioxide 25 Anion Gap 11 BUN 22 H Creatinine 0.63 Est GFR ( Amer) > 60 Glucose 204 H Lactic Acid Calcium 9.9 Magnesium 2.3 Total Bilirubin AST Alkaline Phosphatase Total Protein Albumin Urine Color Urine Appearance Urine pH Ur Specific [place] Urine Protein Urine Glucose (UA) Urine Ketones Urine Blood Urine Nitrite Ur Leukocyte Esterase Urine WBC (Auto) Urine RBC (Auto) 12/25/18 11:45 Troponin I < 0.012 NT-Pro-B Natriuret Pep 41 Impressions: Chest X-Ray 12/25/18 11:23 IMPRESSION: No evidence of focal airspace disease or other acute cardiopulmonary process. Assessment and Plan - Diagnosis (1) COPD with exacerbation Is this a current diagnosis for this admission?: Yes Plan: 12/25/2018-continue oxygen supplementation. [place] saturation goal would be 90 to 94%. Try to taper oxygen as tolerated. She does use Pro Air on an as-needed basis. I will order duo nebs every 4 hours if needed. December 26, 2018-continue supplemental oxygen. Continue bronchodilators as needed. Patient with no wheezing or shortness of breath this a.m. Continue to follow (2) UTI (urinary tract infection) Qualifiers: Urinary tract infection type: acute cystitis Hematuria presence: without hematuria Qualified Code(s): N30.00 - Acute cystitis without hematuria Is this a current diagnosis for this admission?: Yes Plan: 12/25/2018-the patient's urine had significant amount of glucose. Leukocyte esterase was positive and 10 white blood cells per high-power field were noted. Urine culture has been ordered. Antibiotic therapy will be started to cover urinary and respiratory etiologies. Await final culture results. I did explain to the patient that this can cause an increase in her white blood cells as well as an increase in her sugars. December 26, 2018-cultures have been obtained awaiting findings. Patient will be continued on current antibiotic therapy. (3) Hypoxia Is this a current diagnosis for this admission?: Yes Plan: 12/25/2018-the patient exhibited increased work of breathing with tachypnea. She also exhibited hypoxemia and required supplemental oxygen to achieve an oxygen saturation greater than 90%. The patient's nurse stated that on room air she would drop as low as 84%. Continue to supplement with oxygen and wean as tolerated. The patient does not wear oxygen at home. December 26, 2018-tachypnea has resolved. Patient remains on supplemental oxygen at this time. Continue to follow and wean oxygen as tolerated (4) Acute bronchitis Qualifiers: Bronchitis organism: unspecified organism Qualified Code(s): J20.9 - Acute bronchitis, unspecified Is this a current diagnosis for this admission?: Yes Plan: 12/25/2018-the combination of painful swallowing and coughing up a thick glob of green phlegm certainly fits with bronchitis. The chest x-ray did not suggest pneumonia. In addition the lungs were clear to auscultation. Antibiotic therapy has been initiated. Its goal will be to cover respiratory and urinary tract. In addition I have ordered Cepacol lozenges and Chloraseptic spray for symptom control. December 26, 2018-patient states she still having coughing fits. Still bringing up green phlegm. Patient is on antibiotics will continue she is also getting Chloraseptic and Cepacol at this time. Will follow may change plan of care once we have diagnostics returned. (5) Diabetes mellitus type 2 in nonobese Is this a current diagnosis for this admission?: Yes Plan: 12/25/2018-the patient is on Janumet XR, Actos and Starlix for her diabetes. Some of these are nonformulary. I will provide the oral medications that are on formulary. The patient may take her own if available. I will order Accu-Cheks before meals and at bedtime as well as sliding scale coverage. December 26, 2018-still remaining high at this time. We will add Lantus 10 units subcu at bedtime continue sliding scale coverage and patient's oral medications. (6) Hypertension Qualifiers: Hypertension type: essential hypertension Qualified Code(s): I10 - Essential (primary) hypertension Is this a current diagnosis for this admission?: Yes Plan: The patient is on verapamil 240 mg every a.m. I will reinstitute this with parameters to hold for bradycardia or hypotension. In addition she appears dry. I will continue with gentle IV fluids. December 26, 2018-stable continue to follow. Continue home medications (7) Odynophagia Is this a current diagnosis for this admission?: Yes Plan: 12/25/2018-the patient has a history of reflux. We will continue an H2 shaquille. The odynophagia does fit with a bad bronchitis. It is slightly improved. This certainly could be from the Solu-Medrol decreasing inflammation. It is unlikely the antibiotics would take effect this quickly. We will continue to monitor her pain level. As noted above we will try Cepacol lozenges or Chloraseptic spray. December 26, 2018-continue H2 blockers - Time Time Spent with patient: 15-24 minutes - Inpatient Certification Based on my medical assessment, after consideration of the patient's comorbidities, presenting symptoms, or acuity I expect that the services needed warrant INPATIENT care.: Yes I certify that my determination is in accordance with my understanding of Medicare's requirements for reasonable and necessary INPATIENT services [42 CFR 412.3e].: Yes Medical Necessity: Other - IV antibiotics
[2018-12-26] MEDS ORDERED: ONDANSETRON HCL INJ/PF 4 MG/2 ML SDV IV PRN (09:00)
[2018-12-26] MEDS: INSULIN REG, HUMAN 100 UNIT/ML 3 ML VIAL (PYX) SUBCUT SCH ×4 (09:45→21:17)
[2018-12-26] MEDS: VERAPAMIL HCL 240 MG TABLET.SA PO SCH (09:46)
[2018-12-26] MEDS: PIOGLITAZONE HCL 15 MG TABLET PO SCH (09:46)
[2018-12-26] MEDS: HYDROCHLOROTHIAZIDE 25 MG TABLET PO SCH (09:47)
[2018-12-26] MEDS: ENOXAPARIN SODIUM INJ 40 MG/0.4 ML DISP.SYRIN SUBCUT SCH (09:53)
[2018-12-26] MEDS: INSULIN GLARGINE,HUM.REC.ANLOG 1,000 UNIT/10 ML VIAL SUBCUT SCH (21:16)
[2018-12-26] MEDS: FAMOTIDINE 20 MG TABLET PO SCH (21:17)
[2018-12-27] MEDS: INSULIN REG, HUMAN 100 UNIT/ML 3 ML VIAL (PYX) SUBCUT SCH ×4 (08:09→22:00)
[2018-12-27] MEDS: HYDROCHLOROTHIAZIDE 25 MG TABLET PO SCH (08:09)
[2018-12-27 08:35] LABS: HEMATOCRIT 39.3 % (36.0-47.0); MEAN CORPUSCULAR HEMOGLOBIN 30.4 pg (27.0-33.4); MEAN CORPUSCULAR HGB CONC 33.1 g/dL (32.0-36.0); MEAN CORPUSCULAR VOLUME 92 fl (80-97); PLATELET COUNT 270 10^3/uL (150-450); RED BLOOD COUNT 4.28 10^6/uL (3.72-5.28); RED CELL DISTRIBUTION WIDTH 14.3 % (11.5-14.0); WHITE BLOOD COUNT 13.2 10^3/uL (4.0-10.5)
[2018-12-27 09:05] LABS: ANION GAP 12 (5-19); BLOOD UREA NITROGEN 23 mg/dL (7-20); CALCIUM 10.4 mg/dL (8.4-10.2); CARBON DIOXIDE 29 mmol/L (22-30); CHLORIDE 97 mmol/L (98-107); GLUCOSE 142 mg/dL (75-110); POTASSIUM 4.1 mmol/L (3.6-5.0)
--- NOTE | 2018-12-27 09:08 | PDOC PROGRESS REPORT ---
Subjective Progress Note for:: 12/27/18 Subjective:: Right-sided rib pain December 27, 2018-no complaints this a.m. Reason For Visit: CYSTITIS,EXACERBATION OF COPD WITH BRONCHITIS Physical Exam Vital Signs: Temp Pulse Resp BP Pulse Ox 98.1 F 67 12 132/67 H 96 12/27/18 00:13 12/27/18 07:00 12/27/18 00:13 12/27/18 00:13 12/27/18 00:43 Intake & Output 12/26/18 12/27/18 12/28/18 06:59 06:59 06:59 Intake Total 753 687 7618 Balance 351 866 3469 Weight 63.8 kg General appearance: PRESENT: no acute distress Teeth exam: PRESENT: poor dentation Neck exam: ABSENT: carotid bruit, JVD, lymphadenopathy, thyromegaly Respiratory exam: PRESENT: clear to auscultation glynn. ABSENT: rales, rhonchi, wheezes Cardiovascular exam: PRESENT: RRR. ABSENT: diastolic murmur, rubs, systolic murmur Pulses: PRESENT: normal dorsalis pedis pul Vascular exam: PRESENT: normal capillary refill GI/Abdominal exam: PRESENT: normal bowel sounds, soft. ABSENT: distended, guarding, mass, organolmegaly, rebound, tenderness Extremities exam: PRESENT: full ROM. ABSENT: calf tenderness, clubbing, pedal edema Neurological exam: PRESENT: alert, awake, oriented to person, oriented to place, oriented to time, oriented to situation, CN II-XII grossly intact. ABSENT: motor sensory deficit Psychiatric exam: PRESENT: appropriate affect, normal mood. ABSENT: homicidal ideation, suicidal ideation Skin exam: PRESENT: dry, intact, warm. ABSENT: cyanosis, rash Results Laboratory Results: 12/27/18 07:52 12/27/18 07:52 WBC 13.2 H RBC 4.28 Hgb 13.0 Hct 39.3 MCV 92 MCH 30.4 MCHC 33.1 RDW 14.3 H Plt Count 270 12/25/18 11:45 Throat Throat Culture - Final NORMAL MELL 12/25/18 11:45 Troponin I < 0.012 NT-Pro-B Natriuret Pep 41 Impressions: Chest X-Ray 12/25/18 11:23 IMPRESSION: No evidence of focal airspace disease or other acute cardiopulmonary process. Assessment and Plan - Diagnosis (1) COPD with exacerbation Is this a current diagnosis for this admission?: Yes Plan: 12/25/2018-continue oxygen supplementation. [place] saturation goal would be 90 to 94%. Try to taper oxygen as tolerated. She does use Pro Air on an as-needed basis. I will order duo nebs every 4 hours if needed. December 26, 2018-continue supplemental oxygen. Continue bronchodilators as needed. Patient with no wheezing or shortness of breath this a.m. Continue to follow December 27, 2018-continue bronchodilators as needed continue supplemental oxygen to start to titrate off. No shortness of breath or wheezing at this time. (2) UTI (urinary tract infection) Qualifiers: Urinary tract infection type: acute cystitis Hematuria presence: without hematuria Qualified Code(s): N30.00 - Acute cystitis without hematuria Is this a current diagnosis for this admission?: Yes Plan: 12/25/2018-the patient's urine had significant amount of glucose. Leukocyte esterase was positive and 10 white blood cells per high-power field were noted. Urine culture has been ordered. Antibiotic therapy will be started to cover urinary and respiratory etiologies. Await final culture results. I did explain to the patient that this can cause an increase in her white blood cells as well as an increase in her sugars. December 26, 2018-cultures have been obtained awaiting findings. Patient will be continued on current antibiotic therapy. December 27, 2018-continue antibiotic therapy awaiting cultures (3) Hypoxia Is this a current diagnosis for this admission?: Yes Plan: 12/25/2018-the patient exhibited increased work of breathing with tachypnea. She also exhibited hypoxemia and required supplemental oxygen to achieve an oxygen saturation greater than 90%. The patient's nurse stated that on room air she would drop as low as 84%. Continue to supplement with oxygen and wean as tolerated. The patient does not wear oxygen at home. December 26, 2018-tachypnea has resolved. Patient remains on supplemental oxygen at this time. Continue to follow and wean oxygen as tolerated December 27, 2018-story rate within normal range at this time. Patient continues on supplemental oxygen continue to follow and wean oxygen as tolerated (4) Acute bronchitis Qualifiers: Bronchitis organism: unspecified organism Qualified Code(s): J20.9 - Acute bronchitis, unspecified Is this a current diagnosis for this admission?: Yes Plan: 12/25/2018-the combination of painful swallowing and coughing up a thick glob of green phlegm certainly fits with bronchitis. The chest x-ray did not suggest pneumonia. In addition the lungs were clear to auscultation. Antibiotic therapy has been initiated. Its goal will be to cover respiratory and urinary tract. In addition I have ordered Cepacol lozenges and Chloraseptic spray for symptom control. December 26, 2018-patient states she still having coughing fits. Still bringing up green phlegm. Patient is on antibiotics will continue she is also getting Chloraseptic and Cepacol at this time. Will follow may change plan of care once we have diagnostics returned. December 27, 2018 improved. Continue Cepacol and Chloraseptic as needed (5) Diabetes mellitus type 2 in nonobese Is this a current diagnosis for this admission?: Yes Plan: 12/25/2018-the patient is on Janumet XR, Actos and Starlix for her diabetes. Some of these are nonformulary. I will provide the oral medications that are on formulary. The patient may take her own if available. I will order Accu-Cheks before meals and at bedtime as well as sliding scale coverage. December 26, 2018-still remaining high at this time. We will add Lantus 10 units subcu at bedtime continue sliding scale coverage and patient's oral medications. December 27, 2018-improved with addition of Lantus continue to follow continue current therapy (6) Hypertension Qualifiers: Hypertension type: essential hypertension Qualified Code(s): I10 - Essential (primary) hypertension Is this a current diagnosis for this admission?: Yes Plan: The patient is on verapamil 240 mg every a.m. I will reinstitute this with parameters to hold for bradycardia or hypotension. In addition she appears dry. I will continue with gentle IV fluids. December 26, 2018-stable continue to follow. Continue home medications December 27, 2018-stable at this time continue current therapy (7) Odynophagia Is this a current diagnosis for this admission?: Yes Plan: 12/25/2018-the patient has a history of reflux. We will continue an H2 shaquille. The odynophagia does fit with a bad bronchitis. It is slightly improved. This certainly could be from the Solu-Medrol decreasing inflammation. It is unlikely the antibiotics would take effect this quickly. We will continue to monitor her pain level. As noted above we will try Cepacol lozenges or Chloraseptic spray. December 26, 2018-continue H2 blockers December 27, 2018-continue H2 blockers - Time Time Spent with patient: 15-24 minutes - Inpatient Certification Based on my medical assessment, after consideration of the patient's comorbidities, presenting symptoms, or acuity I expect that the services needed warrant INPATIENT care.: Yes I certify that my determination is in accordance with my understanding of Medicare's requirements for reasonable and necessary INPATIENT services [42 CFR 412.3e].: Yes Medical Necessity: Other - Continue IV antibiotics, await cultures
[2018-12-27] MEDS: PIOGLITAZONE HCL 15 MG TABLET PO SCH (09:34)
[2018-12-27] MEDS: VERAPAMIL HCL 240 MG TABLET.SA PO SCH (09:34)
[2018-12-27] MEDS: ENOXAPARIN SODIUM INJ 40 MG/0.4 ML DISP.SYRIN SUBCUT SCH (09:37)
[2018-12-27] MEDS: FAMOTIDINE 20 MG TABLET PO SCH (21:21)
[2018-12-27] MEDS: INSULIN GLARGINE,HUM.REC.ANLOG 1,000 UNIT/10 ML VIAL SUBCUT SCH (21:21)
[2018-12-28] MEDS ORDERED: OXYCODONE-ACETAMINOPHEN 5-325 MG TABLET PO ONE (08:08)
--- NOTE | 2018-12-28 08:20 | PDOC DISCHARGE SUMMARY ---
General - Admit/Disc Date/PCP Admission Date/Primary Care Provider: 12/25/18 16:13 Discharge Date: 12/28/18 - Discharge Diagnosis (1) COPD with exacerbation Is this a current diagnosis for this admission?: Yes (2) UTI (urinary tract infection) Is this a current diagnosis for this admission?: Yes (3) Hypoxia Is this a current diagnosis for this admission?: Yes (4) Acute bronchitis Is this a current diagnosis for this admission?: Yes (5) Diabetes mellitus type 2 in nonobese Is this a current diagnosis for this admission?: Yes (6) Hypertension Is this a current diagnosis for this admission?: Yes (7) Odynophagia Is this a current diagnosis for this admission?: Yes - Additional Information Resuscitation Status: Full Code Discharge Diet: As Tolerated Discharge Activity: Activity As Tolerated Prescriptions: Ciprofloxacin HCl [Cipro] 500 mg PO BID #10 tablet Prednisone 10 mg PO DAILY #21 tablet Home Medications: Hydrochlorothiazide [Hydrodiuril 25 mg Tablet] 25 mg PO QAM 12/01/11 Verapamil HCl [Calan Sr 240 mg Tablet.sa] 240 mg PO QAM 12/01/11 Albuterol Sulfate [Proair HFA Inhalation Aerosol 8.5 gm MDI] 1 puff IH Q4HP PRN 12/25/18 Aspirin/Acetaminophen/Caffeine [Excedrin Extra Strength Caplet] 1 each PO DAILYP PRN 12/25/18 Nateglinide [Starlix] 60 mg PO TID 12/25/18 Pioglitazone HCl [Actos 15 mg Tablet] 15 mg PO QAM 12/25/18 Ranitidine HCl 150 mg PO BID 12/25/18 Sitagliptin Phos/Metformin HCl [Janumet Xr 100-1,000 mg Tablet] 1 each PO QHS 12/25/18 Ciprofloxacin HCl [Cipro] 500 mg PO BID #10 tablet 12/28/18 Prednisone 10 mg PO DAILY #21 tablet 12/28/18 History of Present Illness Patient complains of: Generalized pain this a.m. History of Present Illness: SEBASTIAN LACY is a 73 year old female who presented to the ER with difficulty swallowing, throat burning and productive cough. Hospital Course Hospital Course: Patient was admitted with a history of diabetes type 2, sciatica, hypertension, sarcoidosis and COPD. Apparently the day before admission she started not fe eling well have been having pain in her right scapula through to under her right breast for many weeks. In fact she visited the emergency department several times for this complaint. She states that been worked up for shingles and this was negative. She had several other studies in the ER without any conclusive findings. The day before admission she woke up in a sore throat by evening is worse than morning of admission she woke up coughed up some thick greenish phlegm. States that she feels like she swallowed glass at the time she did not notice any blood in this sputum. She did have an elevated white count, tachycardia and tachypnea in the ER she was hypoxic requiring oxygen. UA showed a leukocyte esterase and white count. At this time patient is improved sufficiently return home. We will continue patient on Cipro 500 g p.o. twice daily x5 days for her UTI I also gave her a prednisone Dosepak for her COPD. Patient is instructed to seriously consider smoking cessation. Patient agrees with plan of care. Physical Exam Vital Signs: Temp Pulse Resp BP Pulse Ox 97.4 F 73 20 141/80 H 95 12/28/18 04:16 12/28/18 04:16 12/28/18 04:16 12/28/18 04:16 12/28/18 04:16 Intake & Output 12/27/18 12/28/18 12/29/18 06:59 06:59 06:59 Intake Total 975 2185 Balance 975 2185 Weight 65.2 kg 63.4 kg General appearance: PRESENT: no acute distress, well-developed, well-nourished Neck exam: ABSENT: carotid bruit, JVD, lymphadenopathy, thyromegaly Respiratory exam: PRESENT: clear to auscultation glynn. ABSENT: rales, rhonchi, wheezes Cardiovascular exam: PRESENT: RRR. ABSENT: diastolic murmur, rubs, systolic murmur Pulses: PRESENT: normal dorsalis pedis pul Vascular exam: PRESENT: normal capillary refill GI/Abdominal exam: PRESENT: normal bowel sounds, soft. ABSENT: distended, guarding, mass, organolmegaly, rebound, tenderness Rectal exam: PRESENT: deferred Extremities exam: PRESENT: full ROM. ABSENT: calf tenderness, clubbing, pedal edema Neurological exam: PRESENT: alert, awake, oriented to person, oriented to place, oriented to time, oriented to situation, CN II-XII grossly intact. ABSENT: motor sensory deficit Psychiatric exam: PRESENT: appropriate affect, normal mood. ABSENT: homicidal ideation, suicidal ideation Skin exam: PRESENT: dry, intact, warm. ABSENT: cyanosis, rash Results Laboratory Results: 12/27/18 07:52 12/27/18 07:52 12/27/18 12/27/18 07:52 07:52 WBC 13.2 H RBC 4.28 Hgb 13.0 Hct 39.3 MCV 92 MCH 30.4 MCHC 33.1 RDW 14.3 H Plt Count 270 Sodium 138.1 Potassium 4.1 Chloride 97 L Carbon Dioxide 29 Anion Gap 12 BUN 23 H Creatinine 0.52 Est GFR ( Amer) > 60 Glucose 142 H Calcium 10.4 H 12/25/18 16:34 Sputum Gram Stain - Final 12/25/18 16:34 Sputum Sputum Culture - Final NORMAL MELL 12/25/18 13:30 Clean Catch Midstream Urine Culture - Final Mixed Urogenital Mell 12/25/18 11:45 Throat Throat Culture - Final NORMAL MELL 12/25/18 11:45 Troponin I < 0.012 NT-Pro-B Natriuret Pep 41 Impressions: Chest X-Ray 12/25/18 11:23 IMPRESSION: No evidence of focal airspace disease or other acute cardiopulmonary process. Qualifiers - * PATIENT BEING DISCHARGED WITH ANY OF THE FOLLOWING DIAGNOSIS: No Acute Heart Failure - Is this a Heart Failure Patient?: No Plan Time Spent: Greater than 30 Minutes
--- NOTE | 2018-12-28 08:22 | ADVANCED CARE ---
- Diagnosis (1) COPD with exacerbation Diagnosis Current: Yes (2) UTI (urinary tract infection) Diagnosis Current: Yes (3) Hypoxia Diagnosis Current: Yes (4) Acute bronchitis Diagnosis Current: Yes (5) Diabetes mellitus type 2 in nonobese Diagnosis Current: Yes (6) Hypertension Diagnosis Current: Yes (7) Odynophagia Diagnosis Current: Yes Attendance: Patient and myself Resuscitation Status: Full Code Discussion: Discussion between patient myself about discharge plan. I will send patient home with Cipro 5 mg p.o. twice daily x5 days for her UTI and a prednisone Dosepak for her COPD. Patient should seriously consider smoking cessation. I will resume all other medications the patient was taken prior to admission. Patient agrees with plan of care. We are also doing a walk test on patient to make sure she does not require oxygen therapy at home Care Planning Goals: 1-Cipro 500 g p.o. twice daily for UTI x5 days 2-prednisone Dosepak 3-6-minute walk test for oxygen needs 4-follow-up with primary care within 1 week Time Spent: 20 minutes
[2018-12-28] MEDS: HYDROCHLOROTHIAZIDE 25 MG TABLET PO SCH (09:04)
[2018-12-28] MEDS: PIOGLITAZONE HCL 15 MG TABLET PO SCH (09:04)
[2018-12-28] MEDS: INSULIN REG, HUMAN 100 UNIT/ML 3 ML VIAL (PYX) SUBCUT SCH (09:05)
[2018-12-28] MEDS: VERAPAMIL HCL 240 MG TABLET.SA PO SCH (09:07)
[2018-12-28] MEDS: ENOXAPARIN SODIUM INJ 40 MG/0.4 ML DISP.SYRIN SUBCUT SCH (09:07)
[2018-12-28 09:16] VITALS: BP 136/60
== END 2018-12-28 11:13 | disposition home or self-care (01) | DRG 191 ==
LOC: ER 11:02 → EH 16:13 → 3N 18:59
PROVIDERS: ADMIT Hospitalist; ATTEND Hospitalist
DX: J44.0 Chronic obstructive pulmonary disease with (acute) lower respiratory infection (principal); N30.00 Acute cystitis without hematuria; R13.10 Dysphagia, unspecified; R63.0 Anorexia; E11.9 Type 2 diabetes mellitus without complications; J20.9 Acute bronchitis, unspecified; J44.1 Chronic obstructive pulmonary disease with (acute) exacerbation; R09.02 Hypoxemia; I10 Essential (primary) hypertension; D86.9 Sarcoidosis, unspecified; M54.30 Sciatica, unspecified side; K21.9 Gastro-esophageal reflux disease without esophagitis; H53.8 Other visual disturbances; Z79.84 Long term (current) use of oral hypoglycemic drugs; Z79.52 Long term (current) use of systemic steroids; Z71.6 Tobacco abuse counseling; Z87.891 Personal history of nicotine dependence; Z88.0 Allergy status to penicillin; Z88.2 Allergy status to sulfonamides
CPT/HCPCS: 36415; 71045; 80048; 80053; 81001; 82803; 82962; 83036; 83605; 83735; 83880; 84484; 85025; 85027; 87040; 87070; 87086; 87205; 87880; 93005; 93010; 94640; 96365; 96367; 96375; 99291; J0696; J1815; J2405; J2930; J3475; J3490; J7030; J7620

== ENCOUNTER 2019-03-12 20:55 | Observation (INO) | payer MEDICARE, OTHER ==
[2019-03-12 21:19] LABS: ABSOLUTE LYMPHOCYTES (AUTO) 3.1 10^3/uL (0.5-4.7); ABSOLUTE MONOCYTES (AUTO) 2.1 10^3/uL (0.1-1.4); ABSOLUTE NEUT (AUTO) 8.5 10^3/uL (1.7-8.2); BASOPHILS % (AUTO) 0.4 % (0-2); EOSINOPHILS % (AUTO) 0.3 % (0-6); HEMATOCRIT 43.3 % (36.0-47.0); HEMOGLOBIN 14.5 g/dL (12.0-15.5); LYMPHOCYTES % (AUTO) 22.3 % (13-45); MEAN CORPUSCULAR HEMOGLOBIN 31.8 pg (27.0-33.4); MEAN CORPUSCULAR HGB CONC 33.5 g/dL (32.0-36.0); MEAN CORPUSCULAR VOLUME 95 fl (80-97); MONOCYTES % (AUTO) 15.4 % (3-13); PLATELET COUNT 263 10^3/uL (150-450); RED BLOOD COUNT 4.56 10^6/uL (3.72-5.28); RED CELL DISTRIBUTION WIDTH 14.5 % (11.5-14.0); SEGMENTED NEUTROPHILS % (AUTO) 61.6 % (42-78); TOTAL CELLS COUNTED % (AUTO) 100 %; WHITE BLOOD COUNT 13.8 10^3/uL (4.0-10.5)
[2019-03-12] MEDS ORDERED: IPRATROPIUM/ALBUTEROL 0.5-2.5 MG/3 ML AMPUL NEB ONE ×2 (21:22→22:59)
[2019-03-12] MEDS ORDERED: METHYLPREDNISOLONE INJ 125 MG/2 ML SDV IV ONE (21:22)
[2019-03-12 21:33] LABS: ALBUMIN 4.5 g/dL (3.5-5.0); ALKALINE PHOSPHATASE 81 U/L (38-126); ANION GAP 11 (5-19); ASPARTATE AMINO TRANSFERASE 17 U/L (14-36); BILIRUBIN,DIRECT 0.2 mg/dL (0.0-0.4); BILIRUBIN,TOTAL 0.7 mg/dL (0.2-1.3); BLOOD UREA NITROGEN 13 mg/dL (7-20); CALCIUM 11.1 mg/dL (8.4-10.2); CARBON DIOXIDE 29 mmol/L (22-30); CHLORIDE 104 mmol/L (98-107); CREATINE KINASE 52 U/L (30-135); GLUCOSE 159 mg/dL (75-110); POTASSIUM 4.3 mmol/L (3.6-5.0); TOTAL PROTEIN 7.6 g/dL (6.3-8.2)
[2019-03-12] MEDS: ALBUTEROL SULFATE 0.083% NEB 2.5 MG/3 ML AMPUL NEB SCH ×2 (21:46→21:53)
[2019-03-12 21:47] LABS: CREATINE KINASE MB 1.27 ng/mL (<4.55); NT PRO BNP 319 pg/mL (<125)
[2019-03-12 21:48] LABS: TROPONIN I < 0.012 ng/mL
--- NOTE | 2019-03-12 21:50 | RADIOLOGY REPORT (SQ) ---
EXAM DESCRIPTION: XR CHEST 1 VIEW COMPLETED DATE/TME: 03/12/2019 21:00 CLINICAL HISTORY: 73 years, Female, difficulty breathing COMPARISON: Prior study from 12/25/2018 NUMBER OF VIEWS: One TECHNIQUE: Single frontal view of the chest was obtained. LIMITATIONS: None. FINDINGS: Cardiac and mediastinal contours are stable. Lungs are clear. No pleural effusion or pneumothorax. IMPRESSION: No acute disease. copyright 2010 [employer]- All Rights Reserved
[2019-03-12] MEDS ORDERED: AZITHROMYCIN 250 MG TABLET PO ONE (22:58)
--- NOTE | 2019-03-13 00:02 | EKG REPORT ---
SEVERITY:- ABNORMAL ECG - SINUS RHYTHM RIGHT ATRIAL ABNORMALITY NONSPECIFIC T ABNORMALITIES, LATERAL LEADS BORDERLINE PROLONGED QT INTERVAL : Confirmed by: Maryellen Horowitz 13-Mar-2019 00:02:04
[2019-03-13 00:07] LABS: ARTERIAL BLOOD BASE EXCESS -0.1 mmol/L; ARTERIAL BLOOD H2CO3 1.43 mmol/L (1.05-1.35); ARTERIAL BLOOD HCO3 25.9 mmol/L (20-24); ARTERIAL BLOOD O2 SATURATION 99.8 % (94-98); ARTERIAL BLOOD PCO2 47.5 mmHg (35-45); ARTERIAL BLOOD PH 7.36 (7.35-7.45); ARTERIAL BLOOD PO2 357.3 mmHg (80-100); ARTERIAL BLOOD TOTAL CO2 27.4 mmol/L (21-25)
[2019-03-13 00:08] LABS: ARTERIAL BLOOD FIO2 80%
--- NOTE | 2019-03-13 01:15 | ER Document Report ---
ED General - General Chief Complaint: Shortness Of Breath Stated Complaint: BODYACHES Time Seen by Provider: 03/12/19 21:47 Primary Care Provider: VICTORIA ISLAS MD [Primary Care Provider] - Follow up as needed TRAVEL OUTSIDE OF THE [place] IN LAST 30 DAYS: No - Related Data Allergies/Adverse Reactions: Penicillins Allergy (Severe, Verified 12/25/18 11:04) Sulfa (Sulfonamide Antibiotics) Allergy (Severe, Verified 12/25/18 11:04) Past Medical History - Social History Smoking Status: Current Every Day Smoker Frequency of alcohol use: None Drug Abuse: None Family History: CVA, Malignancy Patient has suicidal ideation: No Patient has homicidal ideation: No - Past Medical History Cardiac Medical History: Reports: Hx Hypertension Denies: Hx Heart Attack Pulmonary Medical History: Reports: Hx COPD Denies: Hx Asthma Neurological Medical History: Denies: Hx Cerebrovascular Accident, Hx Seizures Endocrine Medical History: Reports: Hx Diabetes Mellitus Type 2 Renal/ Medical History: Denies: Hx Peritoneal Dialysis GI Medical History: Reports: Hx Gastroesophageal Reflux Disease. Denies: Hx Hepatitis, Hx Hiatal Hernia, Hx Ulcer Psychiatric Medical History: Denies: Hx Depression Infectious Medical History: Denies: Hx Hepatitis Past Surgical History: Reports: Hx Cholecystectomy, Hx Hysterectomy, Hx Orthopedic Surgery - Discectomy, Other - Mediastinal anoscopy. Denies: Hx Mastectomy, Hx Open Heart Surgery, Hx Pacemaker Physical Exam - Vital signs Vitals: Pulse Ox 88 L 03/12/19 20:56 Course - Re-evaluation Re-evalutation: 03/13/19 01:10 ED patient was given 2 DuoNeb treatments 3 epidurals with no change. Her O2 sats remained below 90% on 6 L she was placed on a Venturi mask. Sats still remained below 90 was placed on a BiPAP with significant improvement of her symptoms. She more comfortably. ABG was obtained. pH 7.36 PCO2 47 203 57 on 80% x 2 consistent with hypoxia and respiratory failure. And respiratory acidosis at this point is felt patient would need admission to the hospital I consulted the hospitalist Dr. Carr who felt that the patient was probably be tter and that we can wean her off the BiPAP advised him I did not feel comfortable doing this he said he would not see the patient until this was done. Patient was taken off the BiPAP and placed on nasal cannula. 6 L. Within 5 minutes her heart rate got up to 120 her sats dropped to 90% and respiratory rate is gone up to 30 minutes by me. She is placed back on BiPAP with improvement of his symptoms with improvement after surgery consulted. A indicate well patient's respiratory rate is now 20. Is advised the patient is back on BiPAP and he needs to see the patient 03/13/19 01:43 - Vital Signs Vital signs: Temp Pulse Resp BP Pulse Ox 24 H 138/70 H 94 03/13/19 01:20 03/13/19 00:01 03/13/19 01:20 - Laboratory Result Diagrams: 03/12/19 20:35 03/12/19 20:35 Laboratory results interpreted by me: 03/12/19 03/12/19 03/12/19 20:35 20:35 20:35 WBC 13.8 H RDW 14.5 H [place] % (Auto) 15.4 H Absolute Neuts (auto) 8.5 H Absolute Monos (auto) 2.1 H Carbonic Acid ABG pCO2 ABG pO2 ABG HCO3 ABG Total CO2 ABG O2 Saturation Creatinine 0.48 L Glucose 159 H Calcium 11.1 H NT-Pro-B Natriuret Pep 319 H 03/12/19 23:55 WBC RDW [place] % (Auto) Absolute Neuts (auto) Absolute Monos (auto) Carbonic Acid 1.43 H ABG pCO2 47.5 H ABG pO2 357.3 H ABG HCO3 25.9 H ABG Total CO2 27.4 H ABG O2 Saturation 99.8 H Creatinine Glucose Calcium NT-Pro-B Natriuret Pep Procedures - Additional Procedures Critical care Additional Procedures: ABG Discharge - Discharge Clinical Impression: COPD (chronic obstructive pulmonary disease) Respiratory failure Qualifiers: Chronicity: acute Respiratory failure complication: hypoxia and hypercapnia Qualified Code(s): J96.01 - Acute respiratory failure with hypoxia; J96.02 - Acute respiratory failure with hypercapnia Disposition: ADMITTED INPATIENT Admitting Provider: Bruno (Hospitalist) Unit Admitted: Telemetry Referrals: VICTORIA ISLAS MD [Primary Care Provider] - Follow up as needed
[2019-03-13] MEDS ORDERED: ACETAMINOPHEN 325 MG TABLET PO PRN ×2 (01:31)
[2019-03-13] MEDS ORDERED: HYDRALAZINE HCL INJ/PF 20 MG/1 ML SDV IV PRN (01:31)
[2019-03-13] MEDS ORDERED: IPRATROPIUM/ALBUTEROL 0.5-2.5 MG/3 ML AMPUL NEB PRN (01:31)
[2019-03-13] MEDS ORDERED: PREDNISONE 20 MG TABLET PO ONE (02:00)
[2019-03-13] MEDS ORDERED: DILTIAZEM HCL 90 MG TABLET PO ONE (02:00)
[2019-03-13] MEDS ORDERED: FLUTICASONE NASAL SPRAY 50 MCG/SPRY 120 SPRAY/16 GM NASL ONE (02:00)
--- NOTE | 2019-03-13 02:15 | PDOC H&P ---
History of Present Illness Admission Date/PCP: 03/13/19 01:52 VICTORIA ISLAS MD Patient complains of: Shortness of breath History of Present Illness: SEBASTIAN LACY is a 73 year old female with a past medical history of diabetes, hypertension, COPD, chronic bronchitis and ongoing tobacco abuse. She presents with 24 hours of intermittent productive cough of yellow sputum, tachypnea and shortness of breath prompting a call to EMS finding her with oxygen saturations in the 80s she is emergency room is tachypneic with use of accessory muscles. She is found to have leukocytosis and oxygen saturation of 80% on room air and started on BiPAP. She is referred to the hospitalist for admission. Past Medical History Cardiac Medical History: Reports: Hypertension Denies: Myocardial Infarction Pulmonary Medical History: Reports: Chronic Obstructive Pulmonary Disease (COPD) Denies: Asthma Neurological Medical History: Denies: Seizures Endocrine Medical History: Reports: Diabetes Mellitus Type 2 GI Medical History: Reports: Gastroesophageal Reflux Disease Denies: Hepatitis, Hiatal Hernia Psychiatric Medical History: Reports: Tobacco Dependency Denies: Depression Hematology: Denies: Anemia, Sickle Cell Disease Past Surgical History Past Surgical History: Reports: Cholecystectomy, Hysterectomy, Orthopedic Surgery - Discectomy, Other - Mediastinal anoscopy Denies: Amputation, Mastectomy, Pacemaker Social History Information Source: Patient Smoking Status: Current Every Day Smoker Frequency of Alcohol Use: None Hx Recreational Drug Use: No Drugs: None Hx Prescription Drug Abuse: No - Advance Directive Resuscitation Status: Full Code Family History Family History: CVA, Malignancy Parental Family History Reviewed: Yes Children Family History Reviewed: Yes Sibling(s) Family History Reviewed.: Yes Medication/Allergy Home Medications: Hydrochlorothiazide [Hydrodiuril 25 mg Tablet] 25 mg PO QAM 12/01/11 Verapamil HCl [Calan Sr 240 mg Tablet.sa] 240 mg PO QAM 12/01/11 Albuterol Sulfate [Proair HFA Inhalation Aerosol 8.5 gm MDI] 1 puff IH Q4HP PRN 12/25/18 Aspirin/Acetaminophen/Caffeine [Excedrin Extra Strength Caplet] 1 each PO DAILYP PRN 12/25/18 Nateglinide [Starlix] 60 mg PO TID 12/25/18 Pioglitazone HCl [Actos 15 mg Tablet] 15 mg PO QAM 12/25/18 Ranitidine HCl 150 mg PO BID 12/25/18 Sitagliptin Phos/Metformin HCl [Janumet Xr 100-1,000 mg Tablet] 1 each PO QHS 12/25/18 Ciprofloxacin HCl [Cipro] 500 mg PO BID #10 tablet 12/28/18 Prednisone 10 mg PO DAILY #21 tablet 12/28/18 Allergies/Adverse Reactions: Penicillins Allergy (Severe, Verified 12/25/18 11:04) Sulfa (Sulfonamide Antibiotics) Allergy (Severe, Verified 12/25/18 11:04) Review of Systems ROS unobtainable: Other - Excessive shortness of breath Physical Exam Vital Signs: Temp Pulse Resp BP Pulse Ox 24 H 138/70 H 94 03/13/19 01:20 03/13/19 00:01 03/13/19 01:20 Intake & Output 03/11/19 03/12/19 03/13/19 11:59 11:59 11:59 Weight 49.7 kg General appearance: PRESENT: cooperative, disheveled, mild distress - Unable to speak in full sentences, paroxysms of cough, well-developed, well-nourished Head exam: PRESENT: atraumatic, normocephalic Eye exam: PRESENT: conjunctiva pink, EOMI, PERRLA. ABSENT: scleral icterus Ear exam: PRESENT: normal external ear exam Mouth exam: PRESENT: moist, tongue midline Neck exam: ABSENT: carotid bruit, JVD, lymphadenopathy, thyromegaly Respiratory exam: PRESENT: accessory muscle use, decreased breath sounds, prolonged expiratory phas, retraction, symmetrical, tachypnea Cardiovascular exam: PRESENT: tachycardia. ABSENT: diastolic murmur, rubs, systolic murmur Pulses: PRESENT: normal dorsalis pedis pul Vascular exam: PRESENT: normal capillary refill GI/Abdominal exam: PRESENT: normal bowel sounds, soft. ABSENT: distended, guarding, mass, organolmegaly, rebound, tenderness Rectal exam: PRESENT: deferred Extremities exam: PRESENT: full ROM. ABSENT: calf tenderness, clubbing, pedal edema Neurological exam: PRESENT: alert, awake, oriented to person, oriented to place, oriented to time, oriented to situation, CN II-XII grossly intact. ABSENT: motor sensory deficit Psychiatric exam: PRESENT: appropriate affect, normal mood. ABSENT: homicidal ideation, suicidal ideation Skin exam: PRESENT: dry, intact, warm. ABSENT: cyanosis, rash Results Laboratory Results: 03/12/19 20:35 03/12/19 20:35 03/12/19 03/12/19 03/12/19 20:35 20:35 23:43 WBC 13.8 H RBC 4.56 Hgb 14.5 Hct 43.3 MCV 95 MCH 31.8 MCHC 33.5 RDW 14.5 H Plt Count 263 Seg Neutrophils % 61.6 Carbonic Acid HCO3/H2CO3 Ratio ABG pH ABG pCO2 ABG pO2 ABG HCO3 ABG O2 Saturation ABG Base Excess FiO2 Sodium 144.4 Potassium 4.3 Chloride 104 Carbon Dioxide 29 Anion Gap 11 BUN 13 Creatinine 0.48 L Est GFR ( Amer) > 60 Glucose 159 H Lactic Acid 1.2 Calcium 11.1 H Total Bilirubin 0.7 AST 17 Alkaline Phosphatase 81 Total Protein 7.6 Albumin 4.5 03/12/19 23:55 WBC RBC Hgb Hct MCV MCH MCHC RDW Plt Count Seg Neutrophils % Carbonic Acid 1.43 H HCO3/H2CO3 Ratio 18:1 ABG pH 7.36 ABG pCO2 47.5 H ABG pO2 357.3 H ABG HCO3 25.9 H ABG O2 Saturation 99.8 H ABG Base Excess -0.1 FiO2 80% Sodium Potassium Chloride Carbon Dioxide Anion Gap BUN Creatinine Est GFR ( Amer) Glucose Lactic Acid Calcium Total Bilirubin AST Alkaline Phosphatase Total Protein Albumin 03/12/19 03/12/19 20:35 20:35 Creatine Kinase 52 CK-MB (CK-2) 1.27 Troponin I < 0.012 NT-Pro-B Natriuret Pep 319 H Impressions: Chest X-Ray 03/12/19 21:00 IMPRESSION: No acute disease. copyright 2010 [employer]- All Rights Reserved Assessment and Plan - Diagnosis (1) Acute bronchitis Qualifiers: Is this a current diagnosis for this admission?: Yes Plan: Prednisone, albuterol, Atrovent, flutter valve, supplemental oxygen (2) COPD (chronic obstructive pulmonary disease) Is this a current diagnosis for this admission?: Yes Plan: Secondary to #1, education, flutter valve (3) Diabetes mellitus type 2 in nonobese Is this a current diagnosis for this admission?: Yes Plan: Humalog sliding scale, follow-up medication reconciliation (4) Tobacco abuse Is this a current diagnosis for this admission?: Yes Plan: Cessation counseling, nicotine replacement options discussed. - Time Time Spent with patient: 25-34 minutes - Inpatient Certification Medical Necessity: Need Close Monitoring Due to Risk of Patient Decompensation
[2019-03-13] MEDS: IPRATROPIUM/ALBUTEROL 0.5-2.5 MG/3 ML AMPUL NEB SCH ×4 (02:45→20:11)
[2019-03-13 03:32] LABS: APPEARANCE,URINE SLIGHTLY-CLOUDY; BILIRUBIN,URINE NEGATIVE (NEGATIVE); COLOR,URINE AMBER; GLUCOSE, URINE 50 mg/dL (NEGATIVE); KETONES,URINE TRACE mg/dL (NEGATIVE); LEUKOCYTE ESTERASE,URINE TRACE (NEGATIVE); NITRITE,URINE NEGATIVE (NEGATIVE); PROTEIN,URINE 100 mg/dL (NEGATIVE); UROBILINOGEN,URINE NEGATIVE mg/dL (<2.0)
[2019-03-13] MEDS ORDERED: FLUTICASONE NASAL SPRAY 50 MCG/SPRY 120 SPRAY/16 GM ONE (03:48)
[2019-03-13] MEDS ORDERED: DILTIAZEM HCL 90 MG TABLET ONE (03:48)
[2019-03-13] MEDS: CHLORPHENIRAMINE MALEATE 4 MG TABLET PO SCH ×4 (04:09→20:40)
[2019-03-13] MEDS ORDERED: PREDNISONE 20 MG TABLET ONE (04:10)
[2019-03-13 05:33] LABS: HEMATOCRIT 38.9 % (36.0-47.0); HEMOGLOBIN 12.9 g/dL (12.0-15.5); MEAN CORPUSCULAR HGB CONC 33.2 g/dL (32.0-36.0); MEAN CORPUSCULAR VOLUME 97 fl (80-97); PLATELET COUNT 220 10^3/uL (150-450); RED BLOOD COUNT 4.03 10^6/uL (3.72-5.28); RED CELL DISTRIBUTION WIDTH 14.7 % (11.5-14.0); WHITE BLOOD COUNT 9.3 10^3/uL (4.0-10.5)
[2019-03-13 05:54] LABS: ABSOLUTE LYMPHOCYTES# (MANUAL) 0.4 10^3/uL (0.5-4.7); ABSOLUTE MONOCYTES # (MANUAL) 0.3 10^3/uL (0.1-1.4); ANISOCYTOSIS SLIGHT; BASOPHILS % (MANUAL) 0 % (0-2); EOSINOPHILS % (MANUAL) 0 % (0-6); LYMPHOCYTES % (MANUAL) 4 % (13-45); MONOCYTES % (MANUAL) 3 % (3-13); PLATELET COMMENT ADEQUATE; SEGMENTED NEUTROPHILS % (MAN) 93 % (42-78); TOTAL CELLS COUNTED 100
[2019-03-13] MEDS: HEPARIN SOD (PORCINE) 5,000 UNIT/ML 1 ML VIAL SUBCUT SCH ×3 (06:42→21:05)
[2019-03-13] MEDS: PREDNISONE 20 MG TABLET PO SCH ×2 (10:11→18:12)
[2019-03-13] MEDS: FLUTICASONE NASAL SPRAY 50 MCG/SPRY 120 SPRAY/16 GM NASL SCH ×2 (10:47→21:04)
[2019-03-13] MEDS ORDERED: CAFFEINE PO PRN (13:16)
[2019-03-13] MEDS ORDERED: ACETAMINOPHEN PO PRN (13:16)
[2019-03-13] MEDS ORDERED: ASPIRIN PO PRN (13:16)
[2019-03-13] MEDS ORDERED: [UNRECOGNIZED DRUG - OTHER] PO PRN (13:16)
[2019-03-13] MEDS: ASPIRIN 81 MG TABLET, ENT COATED PO SCH (15:25)
[2019-03-13] MEDS: DILTIAZEM HCL 90 MG TABLET PO SCH ×2 (15:25→21:04)
[2019-03-13] MEDS: PIOGLITAZONE HCL 15 MG TABLET PO SCH (15:26)
[2019-03-13] MEDS: SITAGLIPTIN PHOSPHATE 50 MG TABLET PO SCH (18:12)
[2019-03-13] MEDS ORDERED: AZITHROMYCIN 500 MG in DEXTROSE 5%-WATER 250 ML IV SCH (22:00)
[2019-03-14] MEDS: IPRATROPIUM/ALBUTEROL 0.5-2.5 MG/3 ML AMPUL NEB SCH ×3 (02:12→14:23)
[2019-03-14 05:34] LABS: ABSOLUTE BASOPHILS # (AUTO) 0.1 10^3/uL (0.0-0.2); ABSOLUTE LYMPHOCYTES (AUTO) 1.6 10^3/uL (0.5-4.7); ABSOLUTE MONOCYTES (AUTO) 2.1 10^3/uL (0.1-1.4); ABSOLUTE NEUT (AUTO) 10.1 10^3/uL (1.7-8.2); BASOPHILS % (AUTO) 0.5 % (0-2); HEMOGLOBIN 12.2 g/dL (12.0-15.5); LYMPHOCYTES % (AUTO) 11.6 % (13-45); MEAN CORPUSCULAR HEMOGLOBIN 31.6 pg (27.0-33.4); MEAN CORPUSCULAR HGB CONC 33.1 g/dL (32.0-36.0); MEAN CORPUSCULAR VOLUME 95 fl (80-97); PLATELET COUNT 236 10^3/uL (150-450); RED BLOOD COUNT 3.88 10^6/uL (3.72-5.28); RED CELL DISTRIBUTION WIDTH 14.2 % (11.5-14.0); SEGMENTED NEUTROPHILS % (AUTO) 72.9 % (42-78); TOTAL CELLS COUNTED % (AUTO) 100 %; WHITE BLOOD COUNT 13.8 10^3/uL (4.0-10.5)
[2019-03-14] MEDS: DILTIAZEM HCL 90 MG TABLET PO SCH ×2 (05:37→14:57)
[2019-03-14] MEDS: HEPARIN SOD (PORCINE) 5,000 UNIT/ML 1 ML VIAL SUBCUT SCH ×2 (05:38→14:58)
[2019-03-14 05:51] LABS: ANION GAP 11 (5-19); BLOOD UREA NITROGEN 31 mg/dL (7-20); CALCIUM 10.6 mg/dL (8.4-10.2); CARBON DIOXIDE 25 mmol/L (22-30); CHLORIDE 103 mmol/L (98-107); GLUCOSE 201 mg/dL (75-110); POTASSIUM 4.5 mmol/L (3.6-5.0)
[2019-03-14] MEDS ORDERED: VERAPAMIL HCL 240 MG TABLET.SA PO SCH (08:00)
[2019-03-14] MEDS ORDERED: HYDROCHLOROTHIAZIDE 25 MG TABLET PO SCH (08:00)
--- NOTE | 2019-03-14 08:16 | RADIOLOGY REPORT (SQ) ---
EXAM DESCRIPTION: CAROTID DOPPLER COMPLETED DATE/TIME: 03/13/2019 8:06 pm REASON FOR STUDY: transient diplopia, possible tia R55 SYNCOPE AND COLLAPSE COMPARISON: None. TECHNIQUE: Grayscale ultrasound, Doppler velocity and spectra, and color Doppler images acquired of the extra-cranial carotid and vertebral arteries. Images stored on PACS. LIMITATIONS: None. FINDINGS: RIGHT CAROTID CCA Velocities: Within normal limits. ICA Velocities Peak systolic 0.81 m/s. End diastolic 0.27 m/s. Proximal ICA/CCA peak systolic ratio 1.4. Spectra normal. No significant plaque. LEFT CAROTID CCA Velocities: Within normal limits. ICA Velocities Peak systolic 0.63 m/s. End diastolic 0.18 m/s. Proximal ICA/CCA peak systolic ratio 1.0. Spectra normal. No significant plaque. VERTEBRAL ARTERIES: Antegrade flow. Normal waveforms. SUBCLAVIAN ARTERIES: No finding. OTHER: No other significant finding. IMPRESSION: NO HEMODYNAMICALLY SIGNIFICANT STENOSIS. COMMENT: Quality ID #[id number]: Velocity criteria are extrapolated from the diameter data as defined by t he Society of Radiologists in Ultrasound Consensus Conference. Radiology 2003: 229; 340-346. TECHNICAL DOCUMENTATION: JOB ID: [id number] [employer]- All Rights Reserved Reading location - IP/workstation name: [email or web address]
[2019-03-14] MEDS: ASPIRIN 81 MG TABLET, ENT COATED PO SCH (09:48)
[2019-03-14] MEDS: FLUTICASONE NASAL SPRAY 50 MCG/SPRY 120 SPRAY/16 GM NASL SCH (09:48)
[2019-03-14] MEDS: PIOGLITAZONE HCL 15 MG TABLET PO SCH (09:49)
[2019-03-14] MEDS: PREDNISONE 20 MG TABLET PO SCH (09:49)
[2019-03-14 13:58] VITALS: BP 110/70
[2019-03-14] MEDS: SITAGLIPTIN PHOSPHATE 50 MG TABLET PO SCH (15:01)
--- NOTE | 2019-03-14 16:18 | PDOC DISCHARGE SUMMARY ---
Impression - Admit/DC Date/PCP Admission Date/Primary Care Provider: 03/13/19 01:52 VICTORIA ISLAS MD Discharge Date: 03/14/19 - Discharge Diagnosis (1) Acute respiratory failure with hypoxia Is this a current diagnosis for this admission?: Yes (2) TIA (transient ischemic attack) Is this a current diagnosis for this admission?: Yes (3) Tobacco abuse Is this a current diagnosis for this admission?: Yes (4) Acute bronchitis Is this a current diagnosis for this admission?: Yes (6) Diabetes mellitus type 2 in nonobese Is this a current diagnosis for this admission?: Yes - Assessment Summary: Patient presented with complaints of shortness of breath and dizziness. On presentation patient was noted to have significant wheezing in the ER and was hypoxic into the 80s on pulse oximetry on room air. Patient was started on breathing treatments and steroids with suspicion of acute bronchitis causing an acute exacerbation of her COPD. Chest x-ray was negative. Sent home azithromycin and prednisone for 3 more days During my evaluation yesterday, patient complained of having an episode of transient diplopia accompanied with a feeling of disequilibrium that lasted about 5 to 10 minutes but not resolved the time of my visit. Patient states that she has never had diplopia lasting that long typically only lasts a few seconds. She denied any other neurological symptoms at the time. She did have a history of cataracts. The exact cause of this episode is very uncertain but he raised the suspicion for potential TIA. Comprehensive neurological exam at the time was completely normal. Patient underwent carotid Doppler which showed no significant stenosis. Echocardiogram was also performed. The results of the echocardiogram is still pending and patient has been given clear instructions to follow-up for the results. Patient was started on aspirin 81 mg daily and nightly atorvastatin. These medications are also indicated given the fact that she is a diabetic within the age of 40-75. Patient is being discharged in stable conditions to follow-up with her primary care physician. - Additional Information Resuscitation Status: Full Code Discharge Diet: As Tolerated Discharge Activity: Activity As Tolerated, Balance Activity w/Rest Referrals: VICTORIA ISLAS MD [Primary Care Provider] - (Follow-up with your primary care provider within 1 week) Prescriptions: Albuterol Sulfate [Albuterol Sulfate Hfa] 1 puff IH Q6HP PRN #1 inhaler PRN Reason: COUGH/SOB Azithromycin 250 mg PO DAILY 3 Days tablet Prednisone [Deltasone 20 mg Tablet] 40 mg PO DAILY #3 tablet Aspirin [Ecotrin 81 mg EC Tablet] 81 mg PO DAILY 30 Days tabec Atorvastatin Calcium [Lipitor 40 mg Tablet] 40 mg PO QHS #30 tablet Home Medications: Hydrochlorothiazide [Hydrodiuril 25 mg Tablet] 25 mg PO QAM 12/01/11 Verapamil HCl [Calan Sr 240 mg Tablet.sa] 240 mg PO QAM 12/01/11 Nateglinide [Starlix] 120 mg PO Q8 12/25/18 Pioglitazone HCl [Actos 15 mg Tablet] 15 mg PO QAM 12/25/18 Ranitidine HCl 150 mg PO BID 12/25/18 Sitagliptin Phos/Metformin HCl [Janumet Xr 100-1,000 mg Tablet] 1 each PO QHS 12/25/18 Albuterol Sulfate [Albuterol Sulfate Hfa] 1 puff IH Q6HP PRN #1 inhaler 03/14/19 Aspirin [Ecotrin 81 mg EC Tablet] 81 mg PO DAILY 30 Days tabec 03/14/19 Atorvastatin Calcium [Lipitor 40 mg Tablet] 40 mg PO QHS #30 tablet 03/14/19 Azithromycin 250 mg PO DAILY 3 Days tablet 03/14/19 Prednisone [Deltasone 20 mg Tablet] 40 mg PO DAILY #3 tablet 03/14/19 History of Present Illiness History of Present Illness: SEBASTIAN LACY is a 73 year old female with a past medical history of diabetes, hypertension, COPD, chronic bronchitis and ongoing tobacco abuse. She presents with 24 hours of intermittent productive cough of yellow sputum, tachypnea and shortness of breath prompting a call to EMS finding her with oxygen saturations in the 80s she is emergency room is tachypneic with use of accessory muscles. She is found to have leukocytosis and oxygen saturation of 80% on room air and started on BiPAP. She is referred to the hospitalist for admission. Physical Exam Vital Signs: Temp Pulse Resp BP Pulse Ox 98.5 F 61 16 110/70 91 L 03/14/19 15:27 03/14/19 15:27 03/14/19 15:27 03/14/19 11:20 03/14/19 15:27 Intake & Output 03/13/19 03/14/19 03/15/19 06:59 06:59 06:59 Intake Total 110 1407 Output Total 500 1275 Balance -390 132 Weight 49.6 kg 50.2 kg General appearance: PRESENT: no acute distress, cooperative Head exam: PRESENT: atraumatic, normocephalic Eye exam: PRESENT: EOMI. ABSENT: nystagmus Mouth exam: PRESENT: moist Neck exam: ABSENT: JVD, tracheal deviation Respiratory exam: PRESENT: clear to auscultation glynn, symmetrical, unlabored. ABSENT: tachypnea Cardiovascular exam: PRESENT: RRR, +S1, +S2. ABSENT: tachycardia GI/Abdominal exam: PRESENT: normal bowel sounds, soft. ABSENT: rebound, rigid, tenderness Neurological exam: PRESENT: alert, awake, oriented to person, oriented to place, oriented to time, oriented to situation, CN II-XII grossly intact, normal gait. ABSENT: abnormal gait, ataxia, motor sensory deficit, aphasic Psychiatric exam: ABSENT: agitated Results Laboratory Results: WBC 13.8 10^3/uL (4.0-10.5) H 03/14/19 04:57 RBC 3.88 10^6/uL (3.72-5.28) 03/14/19 04:57 Hgb 12.2 g/dL (12.0-15.5) 03/14/19 04:57 Hct 37.0 % (36.0-47.0) 03/14/19 04:57 MCV 95 fl (80-97) 03/14/19 04:57 MCH 31.6 pg (27.0-33.4) 03/14/19 04:57 MCHC 33.1 g/dL (32.0-36.0) 03/14/19 04:57 RDW 14.2 % (11.5-14.0) H 03/14/19 04:57 Plt Count 236 10^3/uL (150-450) 03/14/19 04:57 Lymph % (Auto) 11.6 % (13-45) L 03/14/19 04:57 [place] % (Auto) 15.0 % (3-13) H 03/14/19 04:57 Eos % (Auto) 0.0 % (0-6) 03/14/19 04:57 Baso % (Auto) 0.5 % (0-2) 03/14/19 04:57 Absolute Neuts (auto) 10.1 10^3/uL (1.7-8.2) H 03/14/19 04:57 Absolute Lymphs (auto) 1.6 10^3/uL (0.5-4.7) 03/14/19 04:57 Absolute Monos (auto) 2.1 10^3/uL (0.1-1.4) H 03/14/19 04:57 Absolute Eos (auto) 0.0 10^3/uL (0.0-0.6) 03/14/19 04:57 Absolute Basos (auto) 0.1 10^3/uL (0.0-0.2) 03/14/19 04:57 Total Counted 100 03/13/19 04:09 Seg Neutrophils % 72.9 % (42-78) 03/14/19 04:57 Seg Neuts % (Manual) 93 % (42-78) H 03/13/19 04:09 Lymphocytes % (Manual) 4 % (13-45) L 03/13/19 04:09 Monocytes % (Manual) 3 % (3-13) 03/13/19 04:09 Eosinophils % (Manual) 0 % (0-6) 03/13/19 04:09 Basophils % (Manual) 0 % (0-2) 03/13/19 04:09 Abs Neuts (Manual) 8.6 10^3/uL (1.7-8.2) H 03/13/19 04:09 Abs Lymphs (Manual) 0.4 10^3/uL (0.5-4.7) L 03/13/19 04:09 Abs Monocytes (Manual) 0.3 10^3/uL (0.1-1.4) 03/13/19 04:09 Absolute Eos (Manual) 0.0 10^3/uL (0.0-0.6) 03/13/19 04:09 Abs Basophils (Manual) 0.0 10^3/uL (0.0-0.2) 03/13/19 04:09 Platelet Comment ADEQUATE 03/13/19 04:09 Anisocytosis SLIGHT 03/13/19 04:09 Carbonic Acid 1.43 mmol/L (1.05-1.35) H 03/12/19 23:55 HCO3/H2CO3 Ratio 18:1 03/12/19 23:55 ABG pH 7.36 (7.35-7.45) 03/12/19 23:55 ABG pCO2 47.5 mmHg (35-45) H 03/12/19 23:55 ABG pO2 357.3 mmHg (80-100) H 03/12/19 23:55 ABG HCO3 25.9 mmol/L (20-24) H 03/12/19 23:55 ABG Total CO2 27.4 mmol/L (21-25) H 03/12/19 23:55 ABG O2 Saturation 99.8 % (94-98) H 03/12/19 23:55 ABG Base Excess -0.1 mmol/L 03/12/19 23:55 FiO2 80% 03/12/19 23:55 Sodium 138.8 mmol/L (137-145) 03/14/19 04:57 Potassium 4.5 mmol/L (3.6-5.0) 03/14/19 04:57 Chloride 103 mmol/L (98-107) 03/14/19 04:57 Carbon Dioxide 25 mmol/L (22-30) 03/14/19 04:57 Anion Gap 11 (5-19) 03/14/19 04:57 BUN 31 mg/dL (7-20) H 03/14/19 04:57 Creatinine 0.52 mg/dL (0.52-1.25) 03/14/19 04:57 Est GFR ( Amer) > 60 (>60) 03/14/19 04:57 Est GFR (MDRD) Non-Af > 60 (>60) 03/14/19 04:57 Glucose 201 mg/dL (75-110) H 03/14/19 04:57 POC Glucose 178 mg/dL (70-110) H 03/14/19 11:23 Lactic Acid 1.2 mmol/L (0.7-2.1) 03/12/19 23:43 Calcium 10.6 mg/dL (8.4-10.2) H 03/14/19 04:57 Total Bilirubin 0.7 mg/dL (0.2-1.3) 03/12/19 20:35 Direct Bilirubin 0.2 mg/dL (0.0-0.4) 03/12/19 20:35 Neonat Total Bilirubin Not Reportable 03/12/19 20:35 Neonat Direct Bilirubin Not Reportable 03/12/19 20:35 Neonat Indirect Bili Not Reportable 03/12/19 20:35 AST 17 U/L (14-36) 03/12/19 20:35 ALT 15 U/L (<35) 03/12/19 20:35 Alkaline Phosphatase 81 U/L (38-126) 03/12/19 20:35 Creatine Kinase 52 U/L (30-135) 03/12/19 20:35 CK-MB (CK-2) 1.27 ng/mL (<4.55) 03/12/19 20:35 Troponin I < 0.012 ng/mL 03/12/19 20:35 NT-Pro-B Natriuret Pep 319 pg/mL (<125) H 03/12/19 20:35 Total Protein 7.6 g/dL (6.3-8.2) 03/12/19 20:35 Albumin 4.5 g/dL (3.5-5.0) 03/12/19 20:35 Urine Color HAFSA 03/13/19 03:15 Urine Appearance SLIGHTLY-CLOUDY 03/13/19 03:15 Urine pH 5.0 (5.0-9.0) 03/13/19 03:15 Ur Specific Ro[place] 1.030 03/13/19 03:15 Urine Protein 100 mg/dL (NEGATIVE) H 03/13/19 03:15 Urine Glucose (UA) 50 mg/dL (NEGATIVE) H 03/13/19 03:15 Urine Ketones TRACE mg/dL (NEGATIVE) H 03/13/19 03:15 Urine Blood NEGATIVE (NEGATIVE) 03/13/19 03:15 Urine Nitrite NEGATIVE (NEGATIVE) 03/13/19 03:15 Urine Bilirubin NEGATIVE (NEGATIVE) 03/13/19 03:15 Urine Urobilinogen NEGATIVE mg/dL (<2.0) 03/13/19 03:15 Ur Leukocyte Esterase TRACE (NEGATIVE) H 03/13/19 03:15 Urine WBC (Auto) 5 /HPF 03/13/19 03:15 Urine RBC (Auto) 8 /HPF 03/13/19 03:15 U Hyaline Cast (Auto) 3 /LPF 03/13/19 03:15 Squamous Epi Cells Auto 3 /HPF 03/13/19 03:15 Urine Mucus (Auto) MANY /LPF 03/13/19 03:15 Urine Ascorbic Acid NEGATIVE (NEGATIVE) 03/13/19 03:15 03/12/19 20:35 CK-MB (CK-2) 1.27 Troponin I < 0.012 NT-Pro-B Natriuret Pep 319 H Impressions: Chest X-Ray 03/12/19 21:00 IMPRESSION: No acute disease. copyright 2011 [employer]- All Rights Reserved Carotid Doppler Study 03/13/19 00:00 IMPRESSION: NO HEMODYNAMICALLY SIGNIFICANT STENOSIS. Plan Time Spent: Greater than 30 Minutes Stroke Is this a Stroke Patient?: No Acute Heart Failure - Is this a Heart Failure Patient?: No
--- NOTE | 2019-03-16 12:35 | XCELERA REPORT ---
[address] [address] Transthoracic Echocardiogram Report Name: SEBASTIAN LACY Age: 73 yrs Gender: Female : 1945 Patient Status: Inpatient Patient Location: [facility]^A Study Date: 03/13/2019 06:22 PM Height: 61 in Weight: 109 lb BSA: 1.5 m2 Procedure: A two-dimensional transthoracic echocardiogram with color flow and Doppler was performed. The study was technically limited with all images being suboptimal in quality. Reason For Study: TIA History: TIA. Ordering Physician: DEBBIE CHAWLA Performed By: Comfort Romero Interpretation Summary There is no obvious cardiac source of embolus noted on this transthoracic echocardiogram. Follow-up with a GUILLE is suggested if cardiac source is still suspected. The left ventricle is normal in size. There is mild concentric left ventricular hypertrophy. LV EF is > than 60% Left ventricular systolic function is normal. Doppler measurements suggest impaired left ventricular relaxation, which is associated with grade I/IV or mild diastolic dysfunction The left ventricular wall motion is normal. There is no thrombus. No ASD ,VSD , or PFO seen. The right ventricle is normal in size and function. The right atrium is normal. The left atrial size is normal. There is no evidence of mitral valve prolapse. There is no vegetation seen on the mitral valve. There is no mitral valve stenosis. There is moderate mitral annular calcification. There is a trace amount of mitral regurgitation There is no aortic valvular vegetation. There is aortic sclerosis without aortic stenosis. There is no LVOT obstruction. No aortic regurgitation is present. There is no tricuspid stenosis. There is a mild amount of tricuspid regurgitation At least moderate pulmonary hypertension.RVSP is at least 47 mm of Hg with RA mean of at least 20 mm of Hg . There is no pulmonic valvular stenosis. There is no pulmonic valvular regurgitation. The aortic root is not well visualized but is probably normal size. The inferior vena cava appeared dilated and did not change with respiration (RAP > 20 mmHg) There is no pericardial effusion. There is no obvious cardiac source of embolus noted on this transthoracic echocardiogram. Follow-up with a GUILLE is suggested if cardiac source is still suspected MMode/2D Measurements & Calculations RVDd: 1.9 cm LVIDd: 2.7 cm FS: 25.2 % Ao root diam: 2.7 cm IVSd: 1.2 cm LVIDs: 2.0 cm EDV(Teich): Ao root area: LVPWd: 1.1 cm 27.7 ml 5.9 cm2 ESV(Teich): LA dimension: 2.9 cm 13.4 ml EF(Teich): 51.6 % LVLd ap4: 8.0 cm SV(MOD-sp4): EDV(MOD-sp4): 49.0 ml 69.0 ml LVLs ap4: 6.0 cm ESV(MOD-sp4): 20.0 ml EF(MOD-sp4): 71.0 % Doppler Measurements & Calculations MV E max bill: MV P1/2t max bill: Ao V2 max: LV V1 max P.8 cm/sec 115.8 cm/sec 147.2 cm/sec 5.8 mmHg MV A max bill: MV P1/2t: 53.1 msec Ao max P.7 mmHgLV V1 max: 119.4 cm/sec MVA(P1/2t): 4.1 cm2 120.1 cm/sec MV E/A: 0.79 MV dec slope: 638.3 cm/sec2 MV dec time: 0.23 sec PA V2 max: TR max bill: MV P1/2t-pr_phl: 105.7 cm/sec 258.2 cm/sec 53.1 msec PA max P.5 mmHgTR max P.7 mmHg Left Ventricle The left ventricle is normal in size. There is mild concentric left ventricular hypertrophy. LV EF is > than 60%. Left ventricular systolic function is normal. Doppler measurements suggest impaired left ventricular relaxation, which is associated with grade I/IV or mild diastolic dysfunction. The left ventricular wall motion is normal. There is no thrombus. No ASD ,VSD , or PFO seen. Right Ventricle The right ventricle is normal in size and function. Atria The right atrium is normal. The left atrial size is normal. Mitral Valve There is moderate mitral annular calcification. There is no evidence of mitral valve prolapse. There is no vegetation seen on the mitral valve. There is no mitral valve stenosis. There is a trace amount of mitral regurgitation. Aortic Valve There is no aortic valvular vegetation. There is aortic sclerosis without aortic stenosis. There is no LVOT obstruction. No aortic regurgitation is present. Tricuspid Valve There is no tricuspid stenosis. There is a mild amount of tricuspid regurgitation. At least moderate pulmonary hypertension.RVSP is at least 47 mm of Hg with RA mean of at least 20 mm of Hg . Pulmonic Valve There is no pulmonic valvular stenosis. There is no pulmonic valvular regurgitation. Great Vessels The aortic root is not well visualized but is probably normal size. The inferior vena cava appeared dilated and did not change with respiration (RAP > 20 mmHg). Effusions There is no pericardial effusion. : DEBBIE CHAWLA Lakshmi
== END 2019-03-14 17:45 | disposition home or self-care (01) ==
LOC: ER 20:55 → INTOOBSV 03-13 01:52 → EH 03-13 01:52 → 4N 03-13 03:07
PROVIDERS: ADMIT Internal Medicine; ATTEND Internal Medicine
DX: J96.01 Acute respiratory failure with hypoxia (principal); J96.02 Acute respiratory failure with hypercapnia; G45.9 Transient cerebral ischemic attack, unspecified; J44.1 Chronic obstructive pulmonary disease with (acute) exacerbation; J20.9 Acute bronchitis, unspecified; J44.0 Chronic obstructive pulmonary disease with (acute) lower respiratory infection; E11.9 Type 2 diabetes mellitus without complications; H53.2 Diplopia; I10 Essential (primary) hypertension; K21.9 Gastro-esophageal reflux disease without esophagitis; F17.200 Nicotine dependence, unspecified, uncomplicated; Z79.899 Other long term (current) drug therapy; Z79.82 Long term (current) use of aspirin; Z82.3 Family history of stroke; Z86.69 Personal history of other diseases of the nervous system and sense organs
CPT/HCPCS: 93005; 94640 ×5; 99285; 96374; 36415 ×3; 87040 ×2; 82553; 82962 ×2; 82803; 82550; 83605; 85025 ×3; 80048; 80053; 81001; 84484; 83880; 93306; 93880; 71045; 94799; 93010; 94660 ×2; G0378 ×3; A9270 ×15; J1644 ×2; J2930; J3490 ×2; J7060; J0456; J7512; J7620

== ENCOUNTER 2019-06-25 14:11 | Emergency (ER) | payer MEDICARE, OTHER ==
--- NOTE | 2019-06-25 15:17 | ER Document Report ---
ED Medical Screen (RME) - General Chief Complaint: Fall Injury Stated Complaint: FALL,HIP PAIN Time Seen by Provider: 06/25/19 15:14 Primary Care Provider: VICTORIA ISLAS MD [Primary Care Provider] - Follow up as needed Notes: 73-year-old female presents for fall injury. Patient states she tripped and fell onto her right hip and hit her head. Patient denies LOC. Patient has tenderness to posterior hip. Neuro grossly intact. Patient states this occurred about an hour prior to arrival. Patient is unsure if she can walk on her hip. I have greeted and performed a rapid initial assessment of this patient. A comprehensive ED assessment and evaluation of the patient, analysis of test results and completion of the medical decision making process with be conducted by additional ED providers. TRAVEL OUTSIDE OF THE [place] IN LAST 30 DAYS: No - Related Data Allergies/Adverse Reactions: Penicillins Allergy (Severe, Verified 06/25/19 15:13) Sulfa (Sulfonamide Antibiotics) Allergy (Severe, Verified 06/25/19 15:13) Past Medical History - Past Medical History Cardiac Medical History: Reports: Hx Hypertension Denies: Hx Heart Attack Pulmonary Medical History: Reports: Hx COPD Denies: Hx Asthma Neurological Medical History: Denies: Hx Cerebrovascular Accident, Hx Seizures Endocrine Medical History: Reports: Hx Diabetes Mellitus Type 2 Renal/ Medical History: Denies: Hx Peritoneal Dialysis GI Medical History: Reports: Hx Gastroesophageal Reflux Disease. Denies: Hx Hepatitis, Hx Hiatal Hernia, Hx Ulcer Psychiatric Medical History: Denies: Hx Depression Infectious Medical History: Denies: Hx Hepatitis Past Surgical History: Reports: Hx Cholecystectomy, Hx Hysterectomy, Hx Orthopedic Surgery - Discectomy, Other - Mediastinal anoscopy. Denies: Hx Mastectomy, Hx Open Heart Surgery, Hx Pacemaker Physical Exam - Vital signs Vitals: Temp Pulse Resp BP Pulse Ox 98.4 F 87 16 141/77 H 92 06/25/19 14:06/25/19 14:06/25/19 14:06/25/19 14:06/25/19 14:26 Course - Vital Signs Vital signs: Temp Pulse Resp BP Pulse Ox 98.4 F 87 16 141/77 H 92 06/25/19 14:06/25/19 14:06/25/19 14:06/25/19 14:06/25/19 14:26 Doctor's Discharge - Discharge Referrals: VICTORIA ISLAS MD [Primary Care Provider] - Follow up as needed
--- NOTE | 2019-06-25 15:56 | RADIOLOGY REPORT (SQ) ---
EXAM DESCRIPTION: CT HEAD WITHOUT COMPLETED DATE/TIME: 06/25/2019 3:46 pm REASON FOR STUDY: fall, head injury COMPARISON: None. TECHNIQUE: Axial images acquired through the brain without intravenous contrast. Images reviewed wi th bone, brain and subdural windows. Additional sagittal and coronal reconstructions were generated. Images stored on PACS. All CT scanners at this facility use dose modulation, iterative reconstruction, and/or weight based d osing when appropriate to reduce radiation dose to as low as reasonably achievable (ALARA). [facility]: Dose Right [facility]: CareDose [facility]: Dose Right [facility]: Teradose 4D [facility]: [facility] RADIATION DOSE: CT Rad equipment meets quality standard of care and radiation dose reduction techniq ues were employed. CTDIvol: 53.2 mGy. DLP: 937 mGy-cm. mGy. LIMITATIONS: None. FINDINGS: VENTRICLES: Normal size and contour. CEREBRUM: No masses. No hemorrhage. No midline shift. No evidence for acute infarction. Normal gra y/white matter differentiation. No areas of low density in the white matter. CEREBELLUM: No masses. No hemorrhage. No alteration of density. No evidence for acute infarction. EXTRAAXIAL SPACES: No fluid collections. No masses. ORBITS AND GLOBE: No intra- or extraconal masses. Normal contour of globe without masses. CALVARIUM: No fracture. PARANASAL SINUSES: No fluid or mucosal thickening. SOFT TISSUES: No mass or hematoma. OTHER: No other significant finding. IMPRESSION: NORMAL BRAIN CT WITHOUT CONTRAST. EVIDENCE OF ACUTE STROKE: NO. COMMENT: Quality ID # [id number]: Final reports with documentation of one or more dose reduction techniques (e.g., Automated exposure control, adjustment of the mA and/or kV according to patient size, use of iterative reconstruction technique) TECHNICAL DOCUMENTATION: JOB ID: [id number] 2010 [employer]- All Rights Reserved Reading location - IP/workstation name: [email or web address]
--- NOTE | 2019-06-25 16:08 | RADIOLOGY REPORT (SQ) ---
EXAM DESCRIPTION: HIP RIGHT AP/LATERAL COMPLETED DATE/TIME: 06/25/2019 3:51 pm REASON FOR STUDY: fall, hip injury/pain COMPARISON: None. NUMBER OF VIEWS: Two views. TECHNIQUE: AP and frog-leg view of the right hip. LIMITATIONS: None. FINDINGS: MINERALIZATION: Normal. RIGHT HIP: No fracture or dislocation. No worrisome bone lesions. OPPOSITE HIP: No fracture or dislocation. No worrisome bone lesions. SOFT TISSUES: No findings. OTHER: No other significant finding. IMPRESSION: NEGATIVE STUDY OF THE RIGHT HIP. NO RADIOGRAPHIC EVIDENCE OF ACUTE INJURY. COMMENT: Pelvic fractures are often occult on plain radiographs. If strong clinical suspicion for f racture, recommend CT or MR. TECHNICAL DOCUMENTATION: JOB ID: [id number] 2010 [employer]- All Rights Reserved Reading location - IP/workstation name: [email or web address]
--- NOTE | 2019-06-25 18:38 | ER Document Report ---
ED Fall - General Chief Complaint: Fall Injury Stated Complaint: FALL,HIP PAIN Time Seen by Provider: 06/25/19 18:14 Primary Care Provider: VICTORIA ISLAS MD [Primary Care Provider] - Follow up tomorrow Mode of Arrival: Medic Information source: Patient Notes: Patient [place] and decided to suddenly change directions when planning to sit down. Patient states she tripped over her own feet and fell landing on her right lateral side. Patient states she hit her head on the floor but there was no loss of consciousness and no nausea or vomiting. Patient does complain of right hip pain. Patient states that she has been unable to bear weight due to the tenderness. Patient denies any other injuries. TRAVEL OUTSIDE OF THE [place] IN LAST 30 DAYS: No - HPI Occurred: This afternoon Where: Public place Context: Tripped Associated symptoms: Difficulty walking Location of injury/pain: Hip Quality of pain: Sharp Pain Level: 4 - Related data Allergies/Adverse Reactions: Penicillins Allergy (Severe, Verified 06/25/19 15:13) Sulfa (Sulfonamide Antibiotics) Allergy (Severe, Verified 06/25/19 15:13) Home Medications: excedrin verapamil janumet hctz actos zantac starlix proair Past Medical History - General Information source: Patient - Social History Smoking Status: Current Every Day Smoker Chew tobacco use (# tins/day): No Frequency of alcohol use: None Drug Abuse: None Lives with: Family Family History: CVA, Malignancy Patient has suicidal ideation: No Patient has homicidal ideation: No - Past Medical History Cardiac Medical History: Reports: Hx Hypertension Denies: Hx Heart Attack Pulmonary Medical History: Reports: Hx COPD Denies: Hx Asthma Neurological Medical History: Denies: Hx Cerebrovascular Accident, Hx Seizures Endocrine Medical History: Reports: Hx Diabetes Mellitus Type 2 Renal/ Medical History: Denies: Hx Peritoneal Dialysis GI Medical History: Reports: Hx Gastroesophageal Reflux Disease. Denies: Hx Hepatitis, Hx Hiatal Hernia, Hx Ulcer Psychiatric Medical History: Denies: Hx Depression Infectious Medical History: Denies: Hx Hepatitis Past Surgical History: Reports: Hx Cholecystectomy, Hx Hysterectomy, Hx Orthopedic Surgery - Discectomy, Other - Mediastinal anoscopy Review of Systems - Review of Systems Constitutional: No symptoms reported EENT: No symptoms reported Cardiovascular: No symptoms reported. denies: Chest pain, Syncope, Dizziness Respiratory: No symptoms reported. denies: Cough, Short of breath Gastrointestinal: No symptoms reported. denies: Abdominal pain, Nausea, Vomiting Genitourinary: No symptoms reported Female Genitourinary: No symptoms reported Musculoskeletal: Joint pain - Right hip. denies: Neck pain Skin: No symptoms reported Hematologic/Lymphatic: No symptoms reported Neurological/Psychological: No symptoms reported. denies: Weakness, Lost cons ciousness Physical Exam - Vital signs Vitals: Temp Pulse Resp BP Pulse Ox 98.4 F 87 16 141/77 H 92 06/25/19 14:26 06/25/19 14:26 06/25/19 14:26 06/25/19 14:26 06/25/19 14:26 - General General appearance: Appears well, Alert In distress: None - HEENT Head: Normocephalic, Atraumatic. No: Abrasions, Del Valle's sign, Ecchymosis, Rac[place]'s eyes, Tenderness Eyes: Normal Conjunctiva: Normal Extraocular movements intact: Yes Nasal: Normal Mouth/Lips: Normal Mucous membranes: Normal Neck: Normal, Supple - Respiratory Respiratory status: No respiratory distress Chest status: Nontender Breath sounds: Normal. No: Rales, Rhonchi, Stridor, Wheezing Chest palpation: Normal - Cardiovascular Rhythm: Regular Heart sounds: S1 appreciated, S2 appreciated Murmur: No - Abdominal Inspection: Normal - Back Back: Tender - lower lumbar paraspinal tenderness - Extremities General upper extremity: Normal inspection, Normal strength General lower extremity: Tender - Right hip tenderness Hip: Tender - Hip joint tenderness, Pain with ROM. No: Deformity, Laceration, Unable to bear weight - Neurological Neuro grossly intact: Yes Cognition: Normal [place] Coma Scale Eye Opening: Spontaneous [place] Coma Scale Verbal: Oriented Forrest Coma Scale Motor: Obeys Commands Forrest Coma Scale Total: 15 - Psychological Associated symptoms: Normal affect, Normal mood - Skin Skin Temperature: Warm Skin Moisture: Dry Skin Color: Normal Course - Re-evaluation Re-evalutation: 06/25/19 19:34 Patient without any acute fracture noted on x-ray or CT scan. Patient advised of results. Patient feels that she can stand up but cannot bear weight well. Patient encouraged to use her walker that she has at home. Patient also encouraged to recheck with her primary doctor tomorrow. Discussed worsening symptoms that patient should return immediately for. Patient is requesting short course of prescription for Flexeril she has had this in the past to help with muscle pains. - Vital Signs Vital signs: Temp Pulse Resp BP Pulse Ox 97.8 F 88 18 150/60 H 95 06/25/19 20:06 06/25/19 20:06 06/25/19 20:06 06/25/19 20:06 06/25/19 20:06 - Diagnostic Test Radiology reviewed: Reports reviewed Discharge - Discharge Clinical Impression: Fall Qualifiers: Encounter type: initial encounter Qualified Code(s): W19.XXXA - Unspecified fall, initial encounter Sprain of right hip Qualifiers: Encounter type: initial encounter Qualified Code(s): S73.101A - Unspecified sprain of right hip, initial encounter Head injury Qualifiers: Encounter type: initial encounter Qualified Code(s): S09.90XA - Unspecified injury of head, initial encounter Condition: Stable Disposition: HOME, SELF-CARE Instructions: Acetaminophen, Head Injury Precautions ([facility]), Muscle Relaxers ([facility]), Sprain ([facility]) Additional Instructions: Return immediately for any new or worsening symptoms Followup with your primary care provider, call tomorrow to make a followup appointment Use your walker that you have at home to help with ambulation Prescriptions: Cyclobenzaprine HCl 5 mg PO TID PRN #12 tablet PRN Reason: Referrals: VICTORIA ISLAS MD [Primary Care Provider] - Follow up tomorrow
--- NOTE | 2019-06-25 19:14 | RADIOLOGY REPORT (SQ) ---
EXAM DESCRIPTION: CT RT LOWER EXTREMITY WITHOUT COMPLETED DATE/TIME: 06/25/2019 6:46 pm REASON FOR STUDY: fall, r hip pain COMPARISON: Radiographs 06/25/2019 TECHNIQUE: CT scan of the right and left hips performed without intravenous or oral contrast. Image s reviewed with soft tissue and bone windows. Reconstructed coronal and sagittal MPR images reviewed . All images stored on PACS. All CT scanners at this facility use dose modulation, iterative reconstruction, and/or weight based d osing when appropriate to reduce radiation dose to as low as reasonably achievable (ALARA). [facility]: Dose Right [facility]: CareDose [facility]: Dose Right [facility]: Teradose 4D [facility]: [employer] RADIATION DOSE: CT Rad equipment meets quality standard of care and radiation dose reduction techniq ues were employed. CTDIvol: 10.8 mGy. DLP: 340 mGy-cm. mGy. LIMITATIONS: None. FINDINGS: PELVIC BONES: No acute fracture. No worrisome bone lesions. VISUALIZED SPINE: No acute findings. Right HIP: No acute fracture or dislocation. No worrisome bone lesions. Left HIP: No acute fracture or dislocation. No worrisome bone lesions. PELVIC SOFT TISSUES: Extensive sigmoid diverticulosis with no associated inflammation. EXTRAPELVIC SOFT TISSUES: No significant findings. OTHER: No other significant finding. IMPRESSION: 1. No fracture or dislocation of the right hip. No acute finding in the osseous pelvis or either hip. 2. Diverticulosis coli. TECHNICAL DOCUMENTATION: JOB ID: [id number] Quality ID # [id number]: Final reports with documentation of one or more dose reduction techniques (e.g., Au tomated exposure control, adjustment of the mA and/or kV according to patient size, use of iterative reconstruction technique) 2010 [employer]- All Rights Reserved Reading location - IP/workstation name: [email or web address]
[2019-06-25] MEDS ORDERED: CYCLOBENZAPRINE HCL 10 MG TABLET PO ONE (19:34)
[2019-06-25 20:08] VITALS: BP 150/60
== END 2019-06-25 20:06 | disposition home or self-care (01) ==
LOC: ER 14:11
DX: S73.101A Unspecified sprain of right hip, initial encounter (principal); S09.90XA Unspecified injury of head, initial encounter; W01.0XXA Fall on same level from slipping, tripping and stumbling without subsequent striking against object, initial encounter; Y92.510 Bank as the place of occurrence of the external cause; I10 Essential (primary) hypertension; J44.9 Chronic obstructive pulmonary disease, unspecified; K21.9 Gastro-esophageal reflux disease without esophagitis; E11.9 Type 2 diabetes mellitus without complications; Z79.84 Long term (current) use of oral hypoglycemic drugs; Z79.899 Other long term (current) drug therapy; F17.200 Nicotine dependence, unspecified, uncomplicated; Z88.0 Allergy status to penicillin; Z88.2 Allergy status to sulfonamides
CPT/HCPCS: 99284; 73502; 70450; 73700; A9270